=== PATIENT | male | born 1960 | race Caucasian/White ===

== ENCOUNTER 2016-12-13 20:34 | Inpatient (IN) | payer MEDICARE ==
--- NOTE | 2016-12-13 20:52 | ER Document Report ---
ED Extremity Problem, Lower - General Chief Complaint: Leg Pain Stated Complaint: LEG PAIN Time seen by provider: 20:45 Notes: Patient is a 56-year-old male that comes emergency department for chief complaint of pain to his left lower leg, patient states that 2 weeks ago he fell and caused an abrasion injury over the lower part of his leg, he states that he had been walking on it became began to itch, he states that it has become progressively red since then, last night he began having chills and today he had a fever of 101.4. Patient denies diabetes. Past medical history cerebral palsy, walks with a cane, has frequent falls. Tetanus is not UTD. - Related Data Allergies/Adverse Reactions: No Known Allergies Allergy (Unverified 12/13/16 20:44) Past Medical History - General Information source: Patient - Social History Smoking Status: Never Smoker Frequency of alcohol use: None Drug Abuse: None Lives with: Family Family History: Reviewed & Not Pertinent - Medical History Medical History: Negative Surgical Hx: Negative - Immunizations Immunizations up to date: No Hx Diphtheria, Pertussis, Tetanus Vaccination: Yes Review of Systems - Review of Systems Constitutional: See HPI EENT: No symptoms reported Cardiovascular: No symptoms reported Respiratory: No symptoms reported Gastrointestinal: No symptoms reported Genitourinary: No symptoms reported Male Genitourinary: No symptoms reported Musculoskeletal: See HPI Skin: See HPI Hematologic/Lymphatic: No symptoms reported Neurological/Psychological: No symptoms reported Physical Exam - Vital signs Vitals: Temp Pulse BP Pulse Ox 98.0 F 101 H 131/92 H 97 12/13/16 20:42 12/13/16 20:42 12/13/16 20:42 12/13/16 20:42 Interpretation: Normal - General General appearance: Appears well, Alert In distress: None - Patient lying comfortably on the bed and does not appear to be in any distress, he is slightly flushed appearance - HEENT Head: Normocephalic, Atraumatic Eyes: Normal Conjunctiva: Normal Extraocular movements intact: Yes Eyelashes: Normal Pupils: PERRL Mouth/Lips: Normal Mucous membranes: Normal Pharynx: Normal Neck: Normal - Respiratory Respiratory status: No respiratory distress Chest status: Nontender Breath sounds: Normal. No: Decreased air movement, Wheezing Chest palpation: Normal - Cardiovascular Rhythm: Regular. No: Tachycardia - Not tachycardic on my initial evaluation Heart sounds: Normal auscultation, S1 appreciated, S2 appreciated Murmur: No - Abdominal Inspection: Normal Distension: No distension Bowel sounds: Normal Tenderness: Nontender. No: Tender, Guarding Organomegaly: No organomegaly - Back Back: Normal, Nontender - Extremities General upper extremity: Normal inspection, Nontender, Normal ROM, Normal strength General lower extremity: Other - Erythema and warmth with tenderness extending from just below the knee all the way down to the end of the foot, there is a scab over the mid tibial area, there is small scabs over the posterior aspect of the mid tibial area as well. Normal dorsalis pedis, normal sensation, normal capillary refill. No induration or fluctuant areas noted - Neurological Neuro grossly intact: Yes Cognition: Normal Orientation: AAOx4 Felicia Coma Scale Eye Opening: Spontaneous Blanchard Coma Scale Verbal: Oriented Blanchard Coma Scale Motor: Obeys Commands Felicia Coma Scale Total: 15 Speech: Normal Motor strength normal: LUE, RUE, LLE, RLE Sensory: Normal - Psychological Associated symptoms: Normal affect, Normal mood - Skin Skin Temperature: Warm Skin Moisture: Dry Skin Color: Flushed - Slightly flushed. Patient has lots of dry skin over his arms and legs Course - Re-evaluation Re-evalutation: Patient with reported fever, there is cellulitis extending from the foot of the left lower extremity all the way to just below the knee, there is an obvious old wound with scab, there is no induration, fluctuation, no loss of sensation or abnormal capillary refill. X-rays negative for any acute injuries, likely old injuries from patient's frequent falls. Leukocytosis 16.7 with elevation of neutrophils. Patient not tachycardic on my initial examination, borderline tachycardic on initial vital signs, not hypotensive, he is not toxic appearing. Patient unable to bear weight on the leg without great difficulty, because of this, significant cellulitis, leukocytosis, and fevers discussed patient with hospitalist for potential admission. Tetanus updating, giving vancomycin. Dr. Cueva to admit to telemetry. Patient's vital signs rechecked patient is more tachycardic but is still not hypotensive. Patient is still not on a monitored bed but is being moved one now. - Vital Signs Vital signs: Temp Pulse Resp BP Pulse Ox 97.5 F 110 H 18 134/83 H 95 01/17/17 23:18 12/13/16 23:18 12/13/16 23:18 12/13/16 23:18 12/13/16 23:18 - Laboratory Result Diagrams: 12/13/16 20:55 12/13/16 20:55 Laboratory results interpreted by me: 12/13/16 12/13/16 20:55 20:55 WBC 16.2 H Plt Count 128 L Seg Neutrophils % 86.6 H Lymphocytes % 6.4 L Absolute Neutrophils 14.1 H BUN 28 H Total Bilirubin 1.9 H Discharge - Discharge Clinical Impression: Lower extremity cellulitis Qualifiers: Laterality: left Qualified Code(s): L03.116 - Cellulitis of left lower limb Condition: Stable Disposition: ADMITTED INPATIENT Admitting Provider: Hospitalist - Dr. Cueva Unit Admitted: Telemetry
[2016-12-13 21:21] LABS: ABSOLUTE MONOCYTES (AUTO) 1.1 10^3/uL (0.1-1.4); ABSOLUTE NEUT (AUTO) 14.1 10^3/uL (1.7-8.2); BASOPHILS % (AUTO) 0.2 % (0-2); HEMATOCRIT 46.8 % (37.9-51.0); HGB HCT DIFFERENCE 1.2; LYMPHOCYTES % (AUTO) 6.4 % (13-45); MEAN CORPUSCULAR HEMOGLOBIN 29.9 pg (27.0-33.4); MEAN CORPUSCULAR HGB CONC 34.2 g/dL (32.0-36.0); MEAN CORPUSCULAR VOLUME 88 fl (80-97); MONOCYTES % (AUTO) 6.8 % (3-13); RED BLOOD COUNT 5.35 10^6/uL (4.35-5.55); RED CELL DISTRIBUTION WIDTH 12.5 % (11.5-14.0); SEGMENTED NEUTROPHILS % (AUTO) 86.6 % (42-78); WHITE BLOOD COUNT 16.2 10^3/uL (4.0-10.5)
[2016-12-13 21:33] LABS: ALANINE AMINOTRANSFERASE 33 U/L (21-72); ALBUMIN 3.9 g/dL (3.5-5.0); ALKALINE PHOSPHATASE 91 U/L (38-126); ANION GAP 14 (5-19); ASPARTATE AMINO TRANSFERASE 28 U/L (17-59); BILIRUBIN,TOTAL 1.9 mg/dL (0.2-1.3); BLOOD UREA NITROGEN 28 mg/dL (7-20); CALCIUM 8.9 mg/dL (8.4-10.2); CARBON DIOXIDE 23 mmol/L (22-30); CHLORIDE 100 mmol/L (98-107); CREATININE RESULT 0.96 mg/dL (0.52-1.25); GLUCOSE 105 mg/dL (75-110); TOTAL PROTEIN 6.9 g/dL (6.3-8.2)
[2016-12-13] MEDS ORDERED: VANCOMYCIN HCL INJ 1000 MG VIAL IV ONE (23:01)
[2016-12-13] MEDS ORDERED: DIPH/PERTUSS(ACELL)/TETANUS VAC/PF 0.5 ML SYR (>=10YO) IM ONE (23:42)
[2016-12-13] MEDS ORDERED: NORMAL SALINE 1000 ML 1,000 ML IV ONE (23:44)
[2016-12-13] MEDS ORDERED: ACETAMINOPHEN 325 MG TABLET PO PRN (23:45)
[2016-12-13] MEDS ORDERED: MAG HYDROX/AL HYDROX/SIMETH SUSP 30 ML UDCUP PO PRN (23:45)
[2016-12-13] MEDS ORDERED: MAGNESIUM HYDROXIDE SUSP 30 ML UDCUP PO PRN (23:45)
[2016-12-13] MEDS ORDERED: ONDANSETRON HCL INJ/PF 4 MG/2 ML SDV IV PRN (23:45)
[2016-12-14] MEDS: NORMAL SALINE 1000 ML 1,000 ML IV SCH ×2 (04:43→09:24)
[2016-12-14] MEDS: CLINDAMYCIN 900 MG/D5W RTU 50 ML IV SCH ×3 (06:04→21:50)
[2016-12-14] MEDS: HEPARIN SOD (PORCINE) 5,000 UNIT/ML 1 ML SYRINGE SUBCUT SCH ×3 (06:04→21:50)
--- NOTE | 2016-12-14 06:14 | PDOC H&P ---
History of Present Illness Admission Date/PCP: 12/13/16 23:45 MARTÍNEZ CRAFT MD Patient complains of: Fever, Left leg pain and swelling History of Present Illness: SUSANNAH SLOAN is a 56 year old male with a past medical history of cerebral palsy who had been in his usual state of health until approximately 48 hours ago sustained a slip and fall resulting in an abrasion to his left john and subsequently developed fever, markedly erythema pain and swelling extending from the mid foot to the knee. In the emergency room he is received a tetanus booster and vancomycin referred to the hospitalist for admission. 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 Social History Information Source: Patient Lives with: Family Smoking Status: Never Smoker Frequency of Alcohol Use: None Hx Recreational Drug Use: No Drugs: None - Advance Directive Resuscitation Status: Full Code Family History Family History: Reviewed & Not Pertinent Parental Family History Reviewed: Yes Children Family History Reviewed: Yes Sibling(s) Family History Reviewed.: Yes Medication/Allergy Home Medications: Unobtainable [Unobtainable] 12/14/16 Allergies/Adverse Reactions: No Known Allergies Allergy (Unverified 12/13/16 20:44) Review of Systems Constitutional: ABSENT: chills, fever(s), headache(s), weight gain, weight loss Eyes: ABSENT: visual disturbances Ears: ABSENT: hearing changes Cardiovascular: ABSENT: chest pain, dyspnea on exertion, edema, orthropnea, palpitations Respiratory: ABSENT: cough, hemoptysis Gastrointestinal: ABSENT: abdominal pain, constipation, diarrhea, hematemesis, hematochezia, nausea, vomiting Genitourinary: ABSENT: dysuria, hematuria Musculoskeletal: ABSENT: joint swelling Integumentary: ABSENT: rash, wounds Neurological: ABSENT: abnormal gait, abnormal speech, confusion, dizziness, focal weakness, syncope Psychiatric: ABSENT: anxiety, depression, homidical ideation, suicidal ideation Endocrine: ABSENT: cold intolerance, heat intolerance, polydipsia, polyuria Hematologic/Lymphatic: ABSENT: easy bleeding, easy bruising Physical Exam Vital Signs: Temp Pulse Resp BP Pulse Ox 100.5 F H 103 H 27 H 136/87 H 97 12/14/16 02:39 12/14/16 04:24 12/14/16 03:01 12/14/16 03:01 12/14/16 03:01 General appearance: PRESENT: mild distress, thin, well-developed, well-nourished Head exam: PRESENT: atraumatic, normocephalic, other - diffuse scalp and facial seborrheic dermatitis Eye exam: PRESENT: conjunctiva pink, EOMI, PERRLA. ABSENT: scleral icterus Ear exam: PRESENT: normal external ear exam Respiratory exam: PRESENT: clear to auscultation stacie. ABSENT: rales, rhonchi, wheezes Cardiovascular exam: PRESENT: RRR. ABSENT: diastolic murmur, rubs, systolic murmur Pulses: PRESENT: normal dorsalis pedis pul Vascular exam: PRESENT: normal capillary refill GI/Abdominal exam: PRESENT: normal bowel sounds, soft. ABSENT: distended, guarding, mass, organolmegaly, rebound, tenderness Rectal exam: PRESENT: deferred Extremities exam: PRESENT: tenderness, +1 edema Musculoskeletal exam: PRESENT: other - Bilateral lower extremity congenital abnormality with muscular atrophy. Left leg erythema swelling in pain from the midfoot to the knee Neurological exam: PRESENT: alert, awake, oriented to person, oriented to place , oriented to time, oriented to situation, CN II-XII grossly intact. ABSENT: motor sensory deficit Psychiatric exam: PRESENT: appropriate affect, normal mood. ABSENT: homicidal ideation, suicidal ideation Skin exam: PRESENT: dry, erythema, intact - Left leg erythema swelling and pain from the midfoot to the knee, warm. ABSENT: cyanosis, rash Results Impressions: Tibia/Fibula X-Ray 12/13/16 20:47 IMPRESSION: No evidence for acute fracture dislocation involving the tibia or fibula. Other findings as noted above Assessment & Plan - Diagnosis (1) Lower extremity cellulitis Qualifiers: Laterality: left Qualified Code(s): L03.116 - Cellulitis of left lower limb Is this a current diagnosis for this admission?: YesPlan: Complicated by chronic skin changes he is placed on vancomycin, clindamycin and vitamin C, follow blood culture and CBC (2) Acute seborrheic dermatitis Is this a current diagnosis for this admission?: YesPlan: Ketoconazole shampoo ordered - Time Time Spent: 30 to 50 Minutes
[2016-12-14 06:17] LABS: ABSOLUTE LYMPHOCYTES (AUTO) 0.9 10^3/uL (0.5-4.7); ABSOLUTE NEUT (AUTO) 11.8 10^3/uL (1.7-8.2); BASOPHILS % (AUTO) 0.1 % (0-2); EOSINOPHILS % (AUTO) 0.1 % (0-6); HEMATOCRIT 40.8 % (37.9-51.0); HEMOGLOBIN 14.1 g/dL (13.5-17.0); HGB HCT DIFFERENCE 1.5; LYMPHOCYTES % (AUTO) 6.4 % (13-45); MEAN CORPUSCULAR HGB CONC 34.6 g/dL (32.0-36.0); MEAN CORPUSCULAR VOLUME 87 fl (80-97); RED BLOOD COUNT 4.71 10^6/uL (4.35-5.55); RED CELL DISTRIBUTION WIDTH 12.8 % (11.5-14.0); SEGMENTED NEUTROPHILS % (AUTO) 86.4 % (42-78); WHITE BLOOD COUNT 13.7 10^3/uL (4.0-10.5)
[2016-12-14 06:35] LABS: ANION GAP 11 (5-19); BLOOD UREA NITROGEN 26 mg/dL (7-20); CALCIUM 8.1 mg/dL (8.4-10.2); CARBON DIOXIDE 22 mmol/L (22-30); CHLORIDE 104 mmol/L (98-107); CREATININE RESULT 0.78 mg/dL (0.52-1.25); GLUCOSE 114 mg/dL (75-110); POTASSIUM 3.6 mmol/L (3.6-5.0); SODIUM 137.4 mmol/L (137-145)
[2016-12-14] MEDS: DOCUSATE SODIUM 100 MG CAPSULE PO SCH ×2 (09:24→18:37)
[2016-12-14] MEDS: ASCORBIC ACID 500 MG TABLET PO SCH ×2 (09:24→18:38)
[2016-12-14] MEDS: FAMOTIDINE 20 MG TABLET PO SCH ×2 (09:25→21:50)
[2016-12-14] MEDS ORDERED: NORMAL SALINE 1000 ML 1,000 ML IV PRN (10:36)
[2016-12-14] MEDS: KETOCONAZOLE 2% SHAMPOO 120 ML BOTTLE TP SCH (14:06)
--- NOTE | 2016-12-14 15:25 | PDOC PROGRESS REPORT ---
Subjective Progress Note for:: 12/14/16 Subjective:: Patient is sleeping comfortably; in no distress states that redness of the lower extremity has decreased some Patient has no respiratory distress no fever no chills Physical Exam Vital Signs: Temp Pulse Resp BP Pulse Ox 100.1 F 105 H 18 130/79 H 98 12/14/16 11:22 12/14/16 11:22 12/14/16 11:22 12/14/16 11:22 12/14/16 11:22 Intake & Output 12/13/16 12/14/16 12/15/16 00:59 00:59 00:59 Intake Total 520 Output Total 520 Balance 0 Weight 85.2 kg General appearance: PRESENT: other - Resting comfortably Head exam: PRESENT: atraumatic - Resting comfortably, normocephalic Eye exam: PRESENT: conjunctiva pink, EOMI, PERRLA. ABSENT: scleral icterus Neck exam: ABSENT: carotid bruit, JVD, lymphadenopathy, thyromegaly Respiratory exam: PRESENT: clear to auscultation stacie. ABSENT: rales, rhonchi, wheezes Cardiovascular exam: PRESENT: RRR. ABSENT: diastolic murmur, rubs, systolic murmur Vascular exam: PRESENT: normal capillary refill GI/Abdominal exam: PRESENT: normal bowel sounds, soft. ABSENT: distended, guarding, mass, organolmegaly, rebound, tenderness Extremities exam: PRESENT: other - Left lower extremity Erythema from the foot to mid thigh Skin warm to touch Neurological exam: PRESENT: alert, CN II-XII grossly intact Results Laboratory Results: 12/14/16 05:02 12/14/16 05:02 12/14/16 12/14/16 05:02 05:02 WBC 13.7 H RBC 4.71 Hgb 14.1 Hct 40.8 MCV 87 MCH 30.0 MCHC 34.6 RDW 12.8 Plt Count 110 L Seg Neutrophils % 86.4 H Lymphocytes % 6.4 L Monocytes % 7.0 Eosinophils % 0.1 Basophils % 0.1 Absolute Neutrophils 11.8 H Absolute Lymphocytes 0.9 Absolute Monocytes 1.0 Absolute Eosinophils 0.0 Absolute Basophils 0.0 Sodium 137.4 Potassium 3.6 Chloride 104 Carbon Dioxide 22 Anion Gap 11 BUN 26 H Creatinine 0.78 Est GFR ( Amer) > 60 Est GFR (Non-Af Amer) > 60 Glucose 114 H Calcium 8.1 L Impressions: Tibia/Fibula X-Ray 12/13/16 20:47 IMPRESSION: No evidence for acute fracture dislocation involving the tibia or fibula. Other findings as noted above Assessment & Plan - Diagnosis (1) Cerebral palsy Is this a current diagnosis for this admission?: Yes (2) Lower extremity cellulitis Qualifiers: Laterality: left Qualified Code(s): L03.116 - Cellulitis of left lower limb Is this a current diagnosis for this admission?: YesPlan: Continue present management Patient currently on clindamycin 900 mg IV piggyback every 8 hours (3) DVT prophylaxis Is this a current diagnosis for this admission?: YesPlan: Continue heparin (4) Full code status Is this a current diagnosis for this admission?: Yes - Time Time Spent with patient: 25-34 minutes
[2016-12-14] MEDS: CALCIUM CARBONATE 500 MG TAB.CHEW PO SCH (18:37)
[2016-12-15 05:54] LABS: ABSOLUTE EOSINOPHILS # (AUTO) 0.1 10^3/uL (0.0-0.6); ABSOLUTE LYMPHOCYTES (AUTO) 0.9 10^3/uL (0.5-4.7); ABSOLUTE NEUT (AUTO) 7.4 10^3/uL (1.7-8.2); BASOPHILS % (AUTO) 0.1 % (0-2); EOSINOPHILS % (AUTO) 0.6 % (0-6); HEMOGLOBIN 12.9 g/dL (13.5-17.0); HGB HCT DIFFERENCE 0.7; LYMPHOCYTES % (AUTO) 9.8 % (13-45); MEAN CORPUSCULAR HEMOGLOBIN 29.9 pg (27.0-33.4); MEAN CORPUSCULAR VOLUME 88 fl (80-97); MONOCYTES % (AUTO) 10.3 % (3-13); RED BLOOD COUNT 4.33 10^6/uL (4.35-5.55); RED CELL DISTRIBUTION WIDTH 12.8 % (11.5-14.0); SEGMENTED NEUTROPHILS % (AUTO) 79.2 % (42-78); WHITE BLOOD COUNT 9.3 10^3/uL (4.0-10.5)
[2016-12-15] MEDS: CLINDAMYCIN 900 MG/D5W RTU 50 ML IV SCH ×3 (06:15→23:51)
[2016-12-15 06:16] LABS: ANION GAP 8 (5-19); BLOOD UREA NITROGEN 15 mg/dL (7-20); CARBON DIOXIDE 22 mmol/L (22-30); CHLORIDE 109 mmol/L (98-107); CREATININE RESULT 0.66 mg/dL (0.52-1.25); GLUCOSE 90 mg/dL (75-110); POTASSIUM 3.8 mmol/L (3.6-5.0)
[2016-12-15] MEDS: HEPARIN SOD (PORCINE) 5,000 UNIT/ML 1 ML SYRINGE SUBCUT SCH ×3 (06:22→22:37)
[2016-12-15] MEDS: ASCORBIC ACID 500 MG TABLET PO SCH ×2 (09:39→17:40)
[2016-12-15] MEDS: DOCUSATE SODIUM 100 MG CAPSULE PO SCH ×2 (09:40→17:41)
[2016-12-15] MEDS: CALCIUM CARBONATE 500 MG TAB.CHEW PO SCH ×3 (09:40→17:40)
[2016-12-15] MEDS: FAMOTIDINE 20 MG TABLET PO SCH ×2 (09:41→23:46)
--- NOTE | 2016-12-15 11:20 | PDOC PROGRESS REPORT ---
Subjective Progress Note for:: 12/15/16 Subjective:: Patient is doing much better The redness is decreasing He has no fever no chills no other complaints Leukocytosis has resolved Physical Exam Vital Signs: Temp Pulse Resp BP Pulse Ox 97.6 F 79 20 121/82 97 12/15/16 08:07 12/15/16 08:07 12/15/16 08:07 12/15/16 08:07 12/15/16 08:07 Intake & Output 12/14/16 12/15/16 12/16/16 00:59 00:59 00:59 Intake Total 2394 1779 Output Total 1040 250 Balance 1354 1529 Weight 85.2 kg 88.9 kg General appearance: PRESENT: no acute distress Head exam: PRESENT: atraumatic, normocephalic Eye exam: PRESENT: conjunctiva pink, EOMI, PERRLA. ABSENT: scleral icterus Neck exam: ABSENT: carotid bruit, JVD, lymphadenopathy, thyromegaly Respiratory exam: PRESENT: clear to auscultation stacie. ABSENT: rales, rhonchi, wheezes Cardiovascular exam: PRESENT: RRR. ABSENT: diastolic murmur, rubs, systolic murmur Pulses: PRESENT: normal dorsalis pedis pul Extremities exam: PRESENT: other - Left lower extremity still has some redness mild extending from the foot to the inferior aspect of the patella But the skin is not as red and is warm to touch Decreased to 1-2+ edema of the foot The skin appears extremely dry and scaly Results Laboratory Results: 12/15/16 05:34 12/15/16 05:34 12/15/16 12/15/16 12/15/16 05:34 05:34 05:34 WBC 9.3 RBC 4.33 L Hgb 12.9 L Hct 38.0 MCV 88 MCH 29.9 MCHC 34.0 RDW 12.8 Plt Count 100 L Seg Neutrophils % 79.2 H Lymphocytes % 9.8 L Monocytes % 10.3 Eosinophils % 0.6 Basophils % 0.1 Absolute Neutrophils 7.4 Absolute Lymphocytes 0.9 Absolute Monocytes 1.0 Absolute Eosinophils 0.1 Absolute Basophils 0.0 Sodium 139.0 Potassium 3.8 Chloride 109 H Carbon Dioxide 22 Anion Gap 8 BUN 15 Creatinine 0.66 Est GFR ( Amer) > 60 Est GFR (Non-Af Amer) > 60 Glucose 90 Calcium 8.0 L Ionized Calcium Dari 1.10 L Impressions: Tibia/Fibula X-Ray 12/13/16 20:47 IMPRESSION: No evidence for acute fracture dislocation involving the tibia or fibula. Other findings as noted above Assessment & Plan - Diagnosis (1) Cerebral palsy Is this a current diagnosis for this admission?: Yes (2) Lower extremity cellulitis Qualifiers: Laterality: left Qualified Code(s): L03.116 - Cellulitis of left lower limb Is this a current diagnosis for this admission?: YesPlan: Improving Continue clindamycin IV (3) DVT prophylaxis Is this a current diagnosis for this admission?: Yes (4) Full code status Is this a current diagnosis for this admission?: Yes (5) Seborrheic dermatitis Is this a current diagnosis for this admission?: YesPlan: Continue the use of ketoconazole shampoo daily - Time Time Spent with patient: 25-34 minutes
[2016-12-15] MEDS: KETOCONAZOLE 2% SHAMPOO 120 ML BOTTLE TP SCH (17:37)
[2016-12-16] MEDS: CLINDAMYCIN 900 MG/D5W RTU 50 ML IV SCH (06:21)
[2016-12-16] MEDS: HEPARIN SOD (PORCINE) 5,000 UNIT/ML 1 ML SYRINGE SUBCUT SCH ×2 (06:27→14:55)
[2016-12-16 06:58] LABS: ABSOLUTE EOSINOPHILS # (AUTO) 0.2 10^3/uL (0.0-0.6); ABSOLUTE LYMPHOCYTES (AUTO) 1.2 10^3/uL (0.5-4.7); ABSOLUTE MONOCYTES (AUTO) 0.9 10^3/uL (0.1-1.4); ABSOLUTE NEUT (AUTO) 6.1 10^3/uL (1.7-8.2); BASOPHILS % (AUTO) 0.4 % (0-2); EOSINOPHILS % (AUTO) 1.8 % (0-6); HEMATOCRIT 39.5 % (37.9-51.0); HEMOGLOBIN 13.4 g/dL (13.5-17.0); HGB HCT DIFFERENCE 0.7; LYMPHOCYTES % (AUTO) 14.1 % (13-45); MEAN CORPUSCULAR HEMOGLOBIN 29.9 pg (27.0-33.4); MEAN CORPUSCULAR VOLUME 88 fl (80-97); MONOCYTES % (AUTO) 10.9 % (3-13); RED BLOOD COUNT 4.49 10^6/uL (4.35-5.55); RED CELL DISTRIBUTION WIDTH 12.9 % (11.5-14.0); SEGMENTED NEUTROPHILS % (AUTO) 72.8 % (42-78); WHITE BLOOD COUNT 8.3 10^3/uL (4.0-10.5)
[2016-12-16 07:16] LABS: ANION GAP 10 (5-19); BLOOD UREA NITROGEN 14 mg/dL (7-20); CALCIUM 8.5 mg/dL (8.4-10.2); CARBON DIOXIDE 22 mmol/L (22-30); CHLORIDE 109 mmol/L (98-107); CREATININE RESULT 0.64 mg/dL (0.52-1.25); GLUCOSE 91 mg/dL (75-110); POTASSIUM 3.6 mmol/L (3.6-5.0); SODIUM 141.4 mmol/L (137-145)
[2016-12-16] MEDS ORDERED: DILTIAZEM HCL INJ 25 MG/5 ML VIAL IV ONE ×2 (09:22→12:25)
[2016-12-16] MEDS ORDERED: DILTIAZEM HCL INJ 25 MG/5 ML VIAL ONE ×2 (09:28→12:26)
[2016-12-16] MEDS ORDERED: VANCOMYCIN HCL 0 MG in DEXTROSE 5%-WATER 250 ML IV NR (10:00)
[2016-12-16 10:52] LABS: VITAMIN D 25-HYDROXY 17.2 ng/mL (30.0-100.0)
--- NOTE | 2016-12-16 11:10 | Physician Advisory Note ---
Physician Advisor ProgressNote .: Pursuant to the plan for [facility], I have reviewed the medical record for this patient. Physician Advisor Statement: Possible documentation opportunities if attending agrees: 1. "Principal Dx": please keep Principal Dx that required adm as Dx #1 in each note - or document in each note next to appropriate dx "This is Principal Dx". Thanks for your help with documentation accuracy/specificity improvement! CK Coders: pt does have (+)SIRS criteria, with cellulitis, but unless attending documents that they felt pt actually had "(+)sepsis due to cellulitis, POA, despite neg BC's", I would not query for that dx in this case.
[2016-12-16] MEDS: KETOCONAZOLE 2% SHAMPOO 120 ML BOTTLE TP SCH (11:30)
[2016-12-16] MEDS: CALCIUM CARBONATE 500 MG TAB.CHEW PO SCH ×2 (11:31→17:36)
[2016-12-16] MEDS: ASCORBIC ACID 500 MG TABLET PO SCH ×2 (11:32→17:35)
[2016-12-16] MEDS: FAMOTIDINE 20 MG TABLET PO SCH ×2 (11:33→22:24)
[2016-12-16] MEDS: ENOXAPARIN SODIUM INJ 100 MG/1 ML DISP.SYRIN SUBCUT SCH ×2 (11:33→22:24)
[2016-12-16] MEDS: DOCUSATE SODIUM 100 MG CAPSULE PO SCH ×2 (11:33→17:35)
[2016-12-16] MEDS: DILTIAZEM HCL/D5W 125 ML IV PRN ×2 (11:35→17:40)
[2016-12-16] MEDS ORDERED: DIGOXIN INJ 0.5 MG/2 ML AMPULE IV ONE (12:37)
[2016-12-16 14:18] LABS: VITAMIN D 1,25 DIHYDROXY 36.6 pg/mL (19.9-79.3)
[2016-12-16] MEDS: VANCOMYCIN HCL 1,250 MG in DEXTROSE 5%-WATER 250 ML IV SCH ×2 (14:54→22:24)
[2016-12-16] MEDS: PIPERACILLIN SODIUM/TAZOBACTAM 3.375 GM in NORMAL SALINE 100 ML IV SCH ×3 (14:55→23:51)
[2016-12-16] MEDS ORDERED: POTASSIUM CHLORIDE 10 MEQ TABLET.SA PO ONE (16:36)
--- NOTE | 2016-12-16 16:36 | PDOC PROGRESS REPORT ---
Subjective Progress Note for:: 12/16/16 Subjective:: Cardiac arrhythmia this am : Paroxysmal atrial fibrillation with rapid ventricular response no chest pain or SOB Patient was treated with cardizem IV , digoxin and anticoagulated He was transfered to [facility] Lung scan was negative for PE The cellulitis is not improving with minimal decrease of redness and swelling after 72 H of IV clindamycin Physical Exam Vital Signs: Temp Pulse Resp BP Pulse Ox 97.2 F 125 H 19 112/91 H 95 12/16/16 12:15 12/16/16 14:00 12/16/16 12:15 12/16/16 15:18 12/16/16 12:15 Intake & Output 12/15/16 12/16/16 12/17/16 00:59 00:59 00:59 Intake Total 2394 4259 220 Output Total 1040 1245 120 Balance 1354 3014 100 Weight 85.2 kg 88.9 kg 89.2 kg General appearance: PRESENT: no acute distress Head exam: PRESENT: atraumatic, normocephalic Eye exam: PRESENT: conjunctiva pink, EOMI, PERRLA. ABSENT: scleral icterus Neck exam: ABSENT: carotid bruit, JVD, lymphadenopathy, thyromegaly Respiratory exam: PRESENT: clear to auscultation stacie. ABSENT: rales, rhonchi, wheezes Cardiovascular exam: PRESENT: irregular rhythm, tachycardia. ABSENT: diastolic murmur, systolic murmur GI/Abdominal exam: PRESENT: normal bowel sounds, soft. ABSENT: distended, guarding, mass, organolmegaly, rebound, tenderness Extremities exam: PRESENT: +1 edema - left leg still erythematous, swollen and tender on palpation from foot to knee, other Neurological exam: PRESENT: alert, awake, oriented to person, oriented to place , oriented to time, oriented to situation, CN II-XII grossly intact. ABSENT: motor sensory deficit Results Laboratory Results: 12/16/16 05:58 12/16/16 05:58 12/16/16 12/16/16 05:58 05:58 WBC 8.3 RBC 4.49 Hgb 13.4 L Hct 39.5 MCV 88 MCH 29.9 MCHC 34.0 RDW 12.9 Plt Count 123 L Seg Neutrophils % 72.8 Lymphocytes % 14.1 Monocytes % 10.9 Eosinophils % 1.8 Basophils % 0.4 Absolute Neutrophils 6.1 Absolute Lymphocytes 1.2 Absolute Monocytes 0.9 Absolute Eosinophils 0.2 Absolute Basophils 0.0 Sodium 141.4 Potassium 3.6 Chloride 109 H Carbon Dioxide 22 Anion Gap 10 BUN 14 Creatinine 0.64 Est GFR ( Amer) > 60 Est GFR (Non-Af Amer) > 60 Glucose 91 Calcium 8.5 Impressions: Tibia/Fibula X-Ray 12/13/16 20:47 IMPRESSION: No evidence for acute fracture dislocation involving the tibia or fibula. Other findings as noted above Lung Scan-VQ NM 12/16/16 12:25 IMPRESSION: NORMAL VENTILATION-PERFUSION LUNG SCAN. NEGATIVE FOR PULMONARY EMBOLI. Assessment & Plan - Diagnosis (1) Cerebral palsy Is this a current diagnosis for this admission?: Yes (2) Lower extremity cellulitis Qualifiers: Laterality: left Qualified Code(s): L03.116 - Cellulitis of left lower limb Is this a current diagnosis for this admission?: YesPlan: not improving expand coverage with vanco/zosyn (3) DVT prophylaxis Is this a current diagnosis for this admission?: Yes (4) Full code status Is this a current diagnosis for this admission?: Yes (5) Seborrheic dermatitis Is this a current diagnosis for this admission?: Yes (6) PAF (paroxysmal atrial fibrillation) Is this a current diagnosis for this admission?: YesPlan: with rapid ventricular rate continue cardizem IV ; digoxin no evidence of PE serial troponins continue anticoagulation ; Echocardiogram pending - Time Time Spent with patient: 35 or more minutes
[2016-12-16 19:05] LABS: APPEARANCE,URINE CLEAR; BILIRUBIN,URINE NEGATIVE (NEGATIVE); GLUCOSE, URINE NEGATIVE (NEGATIVE); KETONES,URINE NEGATIVE (NEGATIVE); LEUKOCYTE ESTERASE,URINE NEGATIVE (NEGATIVE); NITRITE,URINE NEGATIVE (NEGATIVE); PROTEIN,URINE NEGATIVE (NEGATIVE); URINE SPECIFIC GRAVITY 1.018; UROBILINOGEN,URINE NEGATIVE mg/dL (<2.0)
--- NOTE | 2016-12-16 20:58 | EKG REPORT ---
SEVERITY:- ABNORMAL ECG - ATRIAL FIBRILLATION, V-RATE 69-147 NONSPECIFIC T ABNORMALITIES, INFERIOR LEADS : Confirmed by: Yang Fofana MD 16-Dec-2016 20:57:23
[2016-12-17] MEDS: DILTIAZEM HCL/D5W 125 ML IV PRN ×2 (03:16→21:25)
[2016-12-17] MEDS: PIPERACILLIN SODIUM/TAZOBACTAM 3.375 GM in NORMAL SALINE 100 ML IV SCH ×4 (05:18→23:44)
[2016-12-17] MEDS: VANCOMYCIN HCL 1,250 MG in DEXTROSE 5%-WATER 250 ML IV SCH ×3 (06:14→21:30)
[2016-12-17 08:39] LABS: ANION GAP 11 (5-19); BLOOD UREA NITROGEN 17 mg/dL (7-20); CALCIUM 8.3 mg/dL (8.4-10.2); CARBON DIOXIDE 23 mmol/L (22-30); CHLORIDE 106 mmol/L (98-107); CREATININE RESULT 0.68 mg/dL (0.52-1.25); GLUCOSE 99 mg/dL (75-110); POTASSIUM 3.6 mmol/L (3.6-5.0); SODIUM 139.7 mmol/L (137-145)
[2016-12-17] MEDS ORDERED: METOPROLOL TARTRATE 25 MG TABLET PO SCH (10:00)
[2016-12-17] MEDS: CHOLECALCIFEROL (D3) 1,000 UNIT TABLET PO SCH (11:35)
[2016-12-17] MEDS: FAMOTIDINE 20 MG TABLET PO SCH ×2 (11:36→21:26)
[2016-12-17] MEDS: DIGOXIN 0.25 MG TABLET PO SCH (11:39)
[2016-12-17] MEDS: DOCUSATE SODIUM 100 MG CAPSULE PO SCH ×2 (11:40→18:26)
[2016-12-17] MEDS: ASCORBIC ACID 500 MG TABLET PO SCH ×2 (11:41→18:26)
[2016-12-17] MEDS: CALCIUM CARBONATE 500 MG TAB.CHEW PO SCH ×2 (11:43→18:26)
[2016-12-17] MEDS: MINERAL OIL/PETROLATUM,WHITE CREAM 114 GM TP SCH (11:45)
[2016-12-17] MEDS: KETOCONAZOLE 2% SHAMPOO 120 ML BOTTLE TP SCH (11:45)
[2016-12-17] MEDS ORDERED: FUROSEMIDE INJ/PF 20 MG/2 ML SDV ONE (11:54)
[2016-12-17 12:21] LABS: ABSOLUTE EOSINOPHILS # (AUTO) 0.2 10^3/uL (0.0-0.6); ABSOLUTE LYMPHOCYTES (AUTO) 1.4 10^3/uL (0.5-4.7); ABSOLUTE MONOCYTES (AUTO) 0.9 10^3/uL (0.1-1.4); ABSOLUTE NEUT (AUTO) 6.5 10^3/uL (1.7-8.2); BASOPHILS % (AUTO) 0.5 % (0-2); EOSINOPHILS % (AUTO) 2.6 % (0-6); HEMATOCRIT 40.8 % (37.9-51.0); HEMOGLOBIN 13.8 g/dL (13.5-17.0); HGB HCT DIFFERENCE 0.6; LYMPHOCYTES % (AUTO) 15.8 % (13-45); MEAN CORPUSCULAR HEMOGLOBIN 29.9 pg (27.0-33.4); MEAN CORPUSCULAR HGB CONC 33.8 g/dL (32.0-36.0); MEAN CORPUSCULAR VOLUME 89 fl (80-97); MONOCYTES % (AUTO) 9.7 % (3-13); RED BLOOD COUNT 4.61 10^6/uL (4.35-5.55); RED CELL DISTRIBUTION WIDTH 12.8 % (11.5-14.0); SEGMENTED NEUTROPHILS % (AUTO) 71.4 % (42-78); WHITE BLOOD COUNT 9.1 10^3/uL (4.0-10.5)
[2016-12-17] MEDS: ENOXAPARIN SODIUM INJ 100 MG/1 ML DISP.SYRIN SUBCUT SCH ×2 (13:54→21:25)
[2016-12-17 14:39] LABS: CREATININE RESULT 0.74 mg/dL (0.52-1.25)
[2016-12-17] MEDS ORDERED: METOPROLOL TARTRATE 25 MG TABLET PO ONE (15:00)
--- NOTE | 2016-12-17 15:08 | XCELERA REPORT ---
[address] [address] Transthoracic Echocardiogram Report Name: SUSANNAH SLOAN Age: 56 yrs Gender: Male : 1960 Patient Status: Inpatient Patient Location: [id number]\304\[id number]\B Study Date: 12/16/2016 07:55 PM Height: 66 in Weight: 196 lb BSA: 2.0 m2 Procedure: A two-dimensional transthoracic echocardiogram with color flow and Doppler was performed. The study was technically difficult with many images being suboptimal in quality. Less than optimal endocrdial visualisation of anterior wall. Reason For Study: PAROXYSMAL ATRIAL FIBRILLATION History: PAROXYSMAL ATRIAL FIBRILLATION. Ordering Physician: MACKENZIE KING Interpretation Summary The left ventricle is normal in size. There is normal left ventricular wall thickness. LV EF is 65% Left ventricular systolic function is normal. The left ventricular wall motion is normal. There is no thrombus. Is off axis.Probaly normal. The left atrial size is normal. There is no evidence of mitral valve prolapse. There is no mitral valve stenosis. There is a mild amount of mitral regurgitation There is no aortic valve stenosis There is no LVOT obstruction. No aortic regurgitation is present. There is no tricuspid stenosis. There is a trace amount of tricuspid regurgitation Right ventricular systolic pressure is normal. RVSP is 26 mm of Hg , with RA mean of 5. There is no pericardial effusion. MMode/2D Measurements \T\ Calculations RVDd: 3.1 cm LVIDd: 4.1 cm FS: 22.2 % LA dimension: 3.0 cm IVSd: 1.0 cm LVIDs: 3.2 cm EDV(Teich): 73.9 ml LVPWd: 0.97 cm ESV(Teich): 40.5 ml EF(Teich): 45.2 % LVOT diam: 2.1 cm LA A4Cs: 17.5 cm2 LA length: 5.7 cm LVOT area: 3.6 cm2 Doppler Measurements \T\ Calculations MV E max fredy: MV P1/2t max fredy: Ao V2 max: LV V1 max P.3 cm/sec 130.8 cm/sec 167.6 cm/sec 6.6 mmHg MV P1/2t: 63.4 msec Ao max PG: LV V1 max: MVA(P1/2t): 3.5 cm2 11.4 mmHg 128.6 cm/sec MV dec slope: CHRISTINE(V,D): 2.7 cm2 604.4 cm/sec2 MV dec time: 0.20 sec PA V2 max: TR max fredy: 71.2 cm/sec 228.0 cm/sec PA max PG: TR max P.8 mmHg 2.0 mmHg Left Ventricle The left ventricle is normal in size. There is normal left ventricular wall thickness. LV EF is 65%. Left ventricular systolic function is normal. LV diastolic function could not be adequately assessed due to atrial fibrilation. The left ventricular wall motion is normal. There is no thrombus. There is no ventricular septal defect visualized. Right Ventricle Is off axis.Probaly normal. Atria The right atrium is normal. The left atrial size is normal. The interatrial septum is intact with no evidence for an atrial septal defect. Mitral Valve There is no evidence of mitral valve prolapse. There is no vegetation seen on the mitral valve. There is no mitral valve stenosis. There is a mild amount of mitral regurgitation. Aortic Valve The aortic valve is trileaflet. The aortic valve opens well. There is no aortic valvular vegetation. There is no aortic valve stenosis. There is no LVOT obstruction. No aortic regurgitation is present. Tricuspid Valve There is no tricuspid stenosis. There is a trace amount of tricuspid regurgitation. Right ventricular systolic pressure is normal. RVSP is 26 mm of Hg , with RA mean of 5. Pulmonic Valve There is no pulmonic valvular stenosis. There is no pulmonic valvular regurgitation. Great Vessels The aortic root is not well visualized. Effusions There is no pericardial effusion. : MACKENZIE KING > Trinh Rodrigues
[2016-12-17] MEDS: METOPROLOL TARTRATE 50 MG TABLET PO SCH (21:26)
[2016-12-18] MEDS ORDERED: POTASSIUM CHLORIDE 10 MEQ TABLET.SA PO ONE (02:32)
[2016-12-18] MEDS ORDERED: FUROSEMIDE INJ/PF 40 MG/4 ML SDV IV ONE (02:32)
[2016-12-18 05:24] LABS: ANION GAP 14 (5-19); BLOOD UREA NITROGEN 18 mg/dL (7-20); CALCIUM 8.8 mg/dL (8.4-10.2); CARBON DIOXIDE 25 mmol/L (22-30); CHLORIDE 103 mmol/L (98-107); GLUCOSE 93 mg/dL (75-110); MAGNESIUM 1.6 mg/dL (1.6-2.3); POTASSIUM 3.9 mmol/L (3.6-5.0); SODIUM 141.5 mmol/L (137-145)
[2016-12-18] MEDS: PIPERACILLIN SODIUM/TAZOBACTAM 3.375 GM in NORMAL SALINE 100 ML IV SCH (05:25)
[2016-12-18] MEDS: VANCOMYCIN HCL 1,250 MG in DEXTROSE 5%-WATER 250 ML IV SCH (06:24)
[2016-12-18] MEDS: DILTIAZEM HCL/D5W 125 ML IV PRN ×2 (06:29→22:02)
[2016-12-18] MEDS ORDERED: FUROSEMIDE INJ/PF 20 MG/2 ML SDV IV SCH (07:45)
[2016-12-18] MEDS ORDERED: DIPHENHYDRAMINE HCL 50 MG/ML VIAL IV PRN (08:57)
[2016-12-18] MEDS: LINEZOLID 300 ML IV SCH ×2 (09:49→21:07)
[2016-12-18] MEDS: MINERAL OIL/PETROLATUM,WHITE CREAM 114 GM TP SCH (09:51)
[2016-12-18] MEDS: KETOCONAZOLE 2% SHAMPOO 120 ML BOTTLE TP SCH (09:51)
[2016-12-18] MEDS ORDERED: DIPHENHYDRAMINE HCL 50 MG/ML VIAL ONE (09:54)
[2016-12-18] MEDS: DILTIAZEM HCL 120 MG CAP.SR.24H PO SCH ×2 (09:55→21:07)
[2016-12-18] MEDS: DOCUSATE SODIUM 100 MG CAPSULE PO SCH ×2 (09:56→17:46)
[2016-12-18] MEDS: DIGOXIN 0.25 MG TABLET PO SCH (09:56)
[2016-12-18] MEDS: CHOLECALCIFEROL (D3) 1,000 UNIT TABLET PO SCH (09:56)
[2016-12-18] MEDS: METOPROLOL TARTRATE 50 MG TABLET PO SCH ×2 (09:56→21:07)
[2016-12-18] MEDS: ENOXAPARIN SODIUM INJ 100 MG/1 ML DISP.SYRIN SUBCUT SCH (09:57)
[2016-12-18] MEDS: FAMOTIDINE 20 MG TABLET PO SCH ×2 (09:57→21:07)
[2016-12-18] MEDS ORDERED: ASPIRIN 81 MG TABLET, ENT COATED PO SCH (10:00)
[2016-12-18] MEDS: METHYLPREDNISOLONE INJ 40 MG/1 ML SDV IV SCH ×2 (10:06→17:45)
[2016-12-18] MEDS: CALCIUM CARBONATE 500 MG TAB.CHEW PO SCH ×2 (10:18→17:46)
[2016-12-18] MEDS: ASCORBIC ACID 500 MG TABLET PO SCH ×2 (10:18→17:46)
--- NOTE | 2016-12-18 12:01 | PDOC PROGRESS REPORT ---
Subjective Progress Note for:: 12/18/16 Subjective:: still in atrial fibrillation with better rate control developped SOB last night and improved with lasix CXR on 12/17 was suggestive of fluid overload This am erythroderma was seen on patient's back without pruritus , thought to be an allergic reaction from Vancomycin which was discontinued Patient has no chest pain fever or chills Physical Exam Vital Signs: Temp Pulse Resp BP Pulse Ox 97.9 F 115 H 24 H 120/84 95 12/18/16 07:15 12/18/16 11:00 12/18/16 07:15 12/18/16 11:00 12/18/16 07:15 Intake & Output 12/17/16 12/18/16 12/19/16 00:59 00:59 00:59 Intake Total 1182 3040 984 Output Total 120 1945 1651 Balance 1062 1095 -667 Weight 89.2 kg 90 kg 88.5 kg General appearance: PRESENT: no acute distress Head exam: PRESENT: atraumatic, normocephalic Eye exam: PRESENT: conjunctiva pink, EOMI, PERRLA. ABSENT: scleral icterus Respiratory exam: PRESENT: clear to auscultation stacie. ABSENT: rales, rhonchi, wheezes Cardiovascular exam: PRESENT: irregular rhythm. ABSENT: diastolic murmur, rubs , systolic murmur Pulses: PRESENT: normal dorsalis pedis pul GI/Abdominal exam: PRESENT: normal bowel sounds, soft. ABSENT: distended, guarding, mass, organolmegaly, rebound, tenderness Extremities exam: PRESENT: other - left lower extremity decreased erythema and swelling Skin exam: PRESENT: other - back : intense erythroderma skin red , warm to touch Results Laboratory Results: 12/17/16 12:08 12/18/16 04:08 12/17/16 12/17/16 12/18/16 12:08 14:00 04:08 WBC 9.1 RBC 4.61 Hgb 13.8 Hct 40.8 MCV 89 MCH 29.9 MCHC 33.8 RDW 12.8 Plt Count 154 Seg Neutrophils % 71.4 Lymphocytes % 15.8 Monocytes % 9.7 Eosinophils % 2.6 Basophils % 0.5 Absolute Neutrophils 6.5 Absolute Lymphocytes 1.4 Absolute Monocytes 0.9 Absolute Eosinophils 0.2 Absolute Basophils 0.0 Sodium 141.5 Potassium 3.9 Chloride 103 Carbon Dioxide 25 Anion Gap 14 BUN 18 Creatinine 0.74 0.70 Est GFR ( Amer) > 60 > 60 Est GFR (Non-Af Amer) > 60 > 60 Glucose 93 Calcium 8.8 Magnesium 1.6 12/16/16 12/16/16 12/17/16 17:00 22:40 04:24 Troponin I 0.019 0.014 0.015 NT-Pro-B Natriuret Pep 12/17/16 04:24 Troponin I NT-Pro-B Natriuret Pep 2380 H Impressions: Tibia/Fibula X-Ray 12/13/16 20:47 IMPRESSION: No evidence for acute fracture dislocation involving the tibia or fibula. Other findings as noted above Lung Scan-VQ NM 12/16/16 12:25 IMPRESSION: NORMAL VENTILATION-PERFUSION LUNG SCAN. NEGATIVE FOR PULMONARY EMBOLI. Chest X-Ray 12/17/16 08:03 IMPRESSION: CARDIAC ENLARGEMENT. VASCULAR CONGESTION. Assessment & Plan - Diagnosis (1) Cerebral palsy Is this a current diagnosis for this admission?: Yes (2) Lower extremity cellulitis Qualifiers: Laterality: left Qualified Code(s): L03.116 - Cellulitis of left lower limb Is this a current diagnosis for this admission?: YesPlan: improving somewhat d/c vanco and replace it with linezolid (3) DVT prophylaxis Is this a current diagnosis for this admission?: Yes (4) Full code status Is this a current diagnosis for this admission?: Yes (5) Seborrheic dermatitis Is this a current diagnosis for this admission?: Yes (6) PAF (paroxysmal atrial fibrillation) Is this a current diagnosis for this admission?: YesPlan: echo showed normal EF; no valvular abnormalities Vascular CHADS Score is Zero will d/c lovenox and prescribe ecotrin 81 mg daily continue digoxin , cardizem metoprolol Dr Ibarra will consult (7) Allergic drug rash Is this a current diagnosis for this admission?: YesPlan: secondary to Vancomycin d/c vanco; treat with solumedrol and benadryl - Time Time Spent with patient: will have patient evaluated in am by PT if stable enough Time Spent with patient: 35 or more minutes
[2016-12-18] MEDS: DIPHENHYDRAMINE HCL 50 MG/ML VIAL IV SCH ×3 (12:38→23:14)
--- NOTE | 2016-12-18 15:58 | CONSULTATION REPORT E ---
Consultation Report NAME: SUSANNAH SLOAN : 1960 AGE: 56Y DATE: 12/18/2016 304 A TO: PATRICIA BEAR M.D. FROM: YOSHI FUENTES M.D. Requesting Physician REASON FOR CONSULTATION: New-onset atrial fibrillation with rapid ventricular response. HISTORY: Patient is a 56-year-old male with known history of cerebral palsy with gait imbalance who walks with a walker, had an accidental fall and had an abrasion to the skin of the left lower extremity, subsequently developed infection and was admitted for cellulitis. The patient yesterday went into atrial fibrillation with rapid ventricular response and was transferred to the telemetry unit and was placed on IV Cardizem. Late last night, the patient developed shortness of breath which improved with Lasix with a chest x-ray showing fluid overload. This may be secondary to atrial fibrillation with rapid ventricular response, and plus the patient is getting IV fluids. The patient with the Lasix improved and at present denies any chest pain or discomfort. There is no shortness of breath. There is no PND or orthopnea. There are no palpitations. There are no TIA or CVA symptoms. As per the patient, his cellulitis is marginally improved with the current treatment. 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 Hence, the patient is on diphenhydramine and steroids. PAST MEDICAL HISTORY: Negative for hypertension. Negative for coronary artery disease, angina or CO. Negative for diabetes mellitus or thyroid disease. There is no history of chronic kidney disease. No symptoms of enlarged prostate. No history of collagen vascular disease. He denies any history of TIA or CVA. He has a history of cerebral palsy and has gait imbalance and walks with a walker, but now with the cellulitis the patient is not able to walk. There is no history of pulmonary embolism. There is no history of asthma or COPD. Although there is no past history of congestive heart failure, the patient yesterday might have gone into fluid overload versus secondary to atrial fibrillation with rapid ventricular response causing congestive heart failure which has resolved with Lasix IV. FAMILY HISTORY: Negative for hypertension, diabetes mellitus, or arrhythmias. 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 SOCIAL HISTORY: The patient does not smoke. There is no history of ETOH abuse. DISPOSITION: The patient is FULL CODE. His is his surrogate healthcare decision maker. MEDICATIONS: Include: Acetaminophen 650 mg p.o. q. 4 hours p.r.n. Ascorbic acid 1000 mg p.o. b.i.d. Aspirin 81 mg p.o. daily. Vitamin D 1000 units p.o. daily. He is on digoxin 0.25 mg p.o. daily. He is on Cardizem 120 mg p.o. q. 12 hours (long acting Cardizem). He received 1 dose of 15 mg IV. He is on diphenhydramine 25 mg IV q. 6 hours. He is on Colace 100 mg p.o. b.i.d. He is on Lovenox 40 mg subcutaneously daily. He is on Pepcid 20 mg p.o. q. 12 hours. He received Lasix 40 mg IV x1 yesterday. He is on Lasix 20 mg IV q. 12 hours. He is on diltiazem at 5 mg/hr transfusion. He is on linezolid (Zyvox) 600 mg IV q. 12 hours. He did receive normal saline 1000-mL boluses times 3 bags. He is on ketoconazole 1 application topically daily. He is on magnesium hydroxide 30 mL p.o. q. 4 hours p.r.n. He is on magnesium hydroxide 30 mL p.o. daily at bedtime p.r.n. He is on Solu-Medrol 40 mg IV q. 8 hours. He is on metoprolol 25 mg p.o. x1 and metoprolol 50 mg p.o. q. 12 hours. He is on mineral oil/petrolatum jelly 1 application topically daily. He is on Zofran 4 mg IV q. 8 hours p.r.n. He is on KCl 40 mEq p.o. x1. ALLERGIES: The patient is allergic to VANCOMYCIN. REVIEW OF SYSTEMS: CONSTITUTIONAL: History of developing fever after his abrasion of his skin after an accidental fall. There is no fatigue. There are no chills or rigors. HEAD: Denies headaches or head injury. History of malignant tumor removed from the left cartilage with no recurrence. EYES: No history of amblyopia or diplopia. No history of amaurosis fugax. EARS: No history of hearing loss. No history of tinnitus. No history of recurrent ear infections. THROAT: No history of odynophagia or dysphagia. No recurrent sore throats. NOSE: No history of hay fever. No history of nosebleeds. MOUTH: No history of altered taste sensation. No ulcers in the mouth. No bleeding from the gums. SKIN: History of seborrheic dermatitis of his face. There is no skin cancer. There is no pruritus. There is no yellowish discoloration of his skin. NECK: No history of painful swellings in the neck. No neck stiffness. no goiter. LUNGS: No history of asthma or COPD. No history of cough or sputum production, but the patient did have some cough with orthopnea and PND yesterday with shortness of breath which was due to volume overload/congestive heart failure versus secondary to the patient receiving IV fluids. Cough and volume overload all resolved with Lasix. no history of sleep apnea. No history of pleuritic chest pain. No hemoptysis. No history of pneumonia. CARDIAC: The patient denies any past history of atrial fibrillation. Even though, the patient is not symptomatic. He has no palpitations. There is no prior history of congestive heart failure, but the patient did have some volume overload/early heart failure yesterday which resolved with Lasix. No history of hypertension. No coronary artery disease, chest pains or angina. The patient has no history of PND or orthopnea. There is left leg edema now secondary to cellulitis but no prior history of leg edema. There is no syncope. The patient does not feel palpitations. There is new-onset atrial fibrillation. GASTROINTESTINAL: No history of GERD. No history of GI bleed. No history of fatty food intolerance. No history of peptic ulcer disease. No altered bowel movements. No diarrhea or constipation. MUSCULOSKELETAL: Denies any arthritis or collagen vascular disease. RENAL: No history of chronic kidney disease. No history of symptoms of UTI. No history of hematuria, pyuria, or dysuria. CENTRAL NERVOUS SYSTEM: History of cerebral palsy present. No history of TIA or CVA. No history of seizures. No history of headaches or migraines. No history of sleep apnea. The patient does have gait imbalance secondary to muscle weakness in his lower extremities due to cerebral palsy. He uses a cane to walk, but with the latter-day of cellulitis, the patient states that he can hardly walk. PSYCHIATRY: No history of anxiety or depression. No suicidal ideation. VASCULAR: No history of calf or buttock claudication. No history of DVT. HEMATOLOGICAL: No history of bleeding diathesis. No history of clotting disorders. PHYSICAL EXAMINATION: GENERAL: The patient is mildly to moderately obese, at present in no acute distress. VITAL SIGNS: He is afebrile with a temperature of 97.9 degrees Fahrenheit. Pulse was 94 beats per minute and later went up to 117. Blood pressure is 113/76. Respirations are 20 per minute. O2 saturations are 95% on room air. HEENT: Head is atraumatic and normocephalic. Eyes: Pupils are equal, round, regular, reactive to light and accommodation. Extraocular movements are normal. There is no conjunctival pallor. There is no scleral icterus. Ears: Tympanic membranes are intact. External auditory canals clear. Nose: There is no deviated nasal septum. There is no inflammation of the nasal mucous membranes. Mouth: Mucous membranes of the mouth are moist. Tongue is moist. There are no ulcers. There is no bleeding from the gums. Throat: There is no odynophagia or dysphagia. No history of recurrent sore throats. SKIN: The patient does have seborrheic dermatitis on the face. There are no petechiae or ecchymoses. No cancerous skin lesions. NECK: Supple. There is no JVD. Carotids are equal. There is no bruit. There is no lymphadenopathy. There is no goiter. LUNGS: Clear to auscultation and percussion. HEART: S1 and S2 are heard. S1 is of variable intensity. There is no S3 gallop. There is no S4 gallop. There is systolic murmur at the left apex and the left sternal border without any radiation. ABDOMEN: Soft, obese, nontender. There is no hepatosplenomegaly. Bowel sounds are well heard. EXTREMITIES: Femorals are slightly diminished. There are no femoral bruits. Leg pulses are well felt on the right side. There is difficulty palpating the tibial pulses in the left leg due to edema, but the capillary refill is normal in both lower extremities. There is [id number] edema in the left lower extremity with redness consistent with cellulitis. CENTRAL NERVOUS SYSTEM: The patient is conscious, awake, alert, oriented x3. There is weakness and spasticity of both lower extremities due to cerebral palsy. PSYCHIATRIC: The patient's judgment and insight are intact. His affect is normal. The patient does not appear to be agitated or depressed. DIAGNOSTIC TEST RESULTS: Tibiofibular x-ray of the left side: There is transverse lucency identified at the level of the patella on the cross table lateral view which appears to be related to previous trauma. However, clinical correlation is recommended. The patient's V/Q scan was negative for PE. The patient's EKG shows atrial fibrillation with rapid ventricular response. The patient's echocardiogram shows the left ventricle is normal in size. There is normal left ventricular wall thickness. *------* seems to be present. Left ventricular systolic function is normal. LV diastolic function could not be assessed due to atrial fibrillation. The left ventricular wall motion is normal. There is no thrombus. There is no ventricular septal defect visualized. Right ventricle is off axis, probably normal. The right atrium is normal. The left atrial size is normal. The interatrial septum is intact. There is no evidence of mitral valve prolapse. There is no vegetation seen on the mitral valve. There is no mitral valve stenosis. There is mild mitral regurgitation. The aortic valve is without aortic stenosis. There is no aortic regurgitation. There is no tricuspid stenosis. There is trace amount of tricuspid regurgitation. Right ventricular systolic pressure is normal. Right ventricular systolic pressure is 26 mmHg without any *------*. There is no pulmonic valvular stenosis. There is no pulmonic valvular regurgitation. The patient's chest x-ray shows volume overload, CHF. Shows cardiac enlargement and vascular enlargement. This was done yesterday due to volume overload, CHF. The patient's white count is 9100 done yesterday. Hemoglobin is 13.8. Hematocrit is 40.8. Platelet count is 154,000. The patient's sodium is 141.5. Potassium is 3.9. Chloride is 103. CO2 is 25. The patient's BUN is 18. Creatinine is 0.70. GFR is greater than 60. His magnesium is 1.6. Calcium is 8.8. Glucose is 93. Patient's NT-proBNP was 2380. The patient's cardiac enzymes were negative. His liver function tests on the showed normal liver function tests except for elevated total bilirubin of 1.9, question Gilbert syndrome. The patient's vitamin D is low at 17.2. His vitamin D1 25-dihydroxy is normal at 36.6. IMPRESSION: 1. New-onset atrial fibrillation with rapid ventricular response. Since the cellulitis is not fully controlled, would continue the patient on IV Cardizem. Would increase it to 10 mg/hr and watch the heart rate. Continue p.o. Cardizem and metoprolol for now. 2. Left lower extremity cellulitis secondary to accidental fall. 3. Transient volume overload, congestive heart failure, and also secondary to atrial fibrillation with rapid ventricular response, resolved with Lasix. 4. 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 Patient is on steroids and Benadryl. 5. Cerebral palsy. 6. Gait imbalance. 7. Seborrheic dermatitis of the face. RECOMMENDATIONS: As mentioned earlier, continue IV Cardizem and continue metoprolol. Increase the patient's Cardizem to 10 mg/hr infusion. The patient's CHADS score is 0. Hence, would recommend that the patient be on 325 mg of aspirin p.o. daily. Would recommend stopping the patient's Lasix and potassium for now. Discussed with the hospitalist. Discussed with the patient and patient's . Note that the patient is FULL CODE. His is his surrogate healthcare decision maker. Also discussed with the patient and the patient's the patient's echocardiographic findings and other findings. Recommendations as mentioned above. Would stop the patient's Lasix and also potassium. Note: Forty-five minutes spent on the patient. More than 50% of this time spent on direct patient care and also discussions with the hospitalist and with nursing providers on the case. Will follow with you. DICTATING PHYSICIAN: PATRICIA BEAR M.D. [id number] PHY#: [id number] ID: [id number] JOB#: [id number] ACCT: [id number] cc:PATRICIA BEAR M.D. >
[2016-12-18 22:15] LABS: ANION GAP 13 (5-19); BLOOD UREA NITROGEN 25 mg/dL (7-20); CARBON DIOXIDE 25 mmol/L (22-30); CHLORIDE 103 mmol/L (98-107); CREATININE RESULT 0.89 mg/dL (0.52-1.25); GLUCOSE 252 mg/dL (75-110); POTASSIUM 3.7 mmol/L (3.6-5.0); SODIUM 140.5 mmol/L (137-145)
[2016-12-19] MEDS: METHYLPREDNISOLONE INJ 40 MG/1 ML SDV IV SCH (02:36)
[2016-12-19 04:34] LABS: HEMOGLOBIN 13.9 g/dL (13.5-17.0); HGB HCT DIFFERENCE -0.3; MEAN CORPUSCULAR HEMOGLOBIN 29.2 pg (27.0-33.4); MEAN CORPUSCULAR HGB CONC 33.2 g/dL (32.0-36.0); MEAN CORPUSCULAR VOLUME 88 fl (80-97); RED BLOOD COUNT 4.77 10^6/uL (4.35-5.55); RED CELL DISTRIBUTION WIDTH 12.7 % (11.5-14.0); WHITE BLOOD COUNT 15.3 10^3/uL (4.0-10.5)
[2016-12-19] MEDS: DIPHENHYDRAMINE HCL 50 MG/ML VIAL IV SCH ×3 (06:00→17:36)
--- NOTE | 2016-12-19 08:52 | PDOC PROGRESS REPORT ---
Subjective Progress Note for:: 12/19/16 Subjective:: Patient is feeling well this morning He has no chest pain no palpitations no shortness of breath On the monitor is in atrial fibrillation at the rate of 80 to 100 He is still on the Cardizem drip at 5 mg/h The redness of her his back is dissipating slowly and there is decreased swelling and redness of the left lower extremity PT evaluation will be attempted And the Cardizem drip may be discontinued later this morning if rate permits Physical Exam Vital Signs: Temp Pulse Resp BP Pulse Ox 97.9 F 72 22 H 117/73 95 12/18/16 23:00 12/19/16 07:00 12/18/16 23:00 12/19/16 06:01 12/18/16 23:00 Intake & Output 12/18/16 12/19/16 12/20/16 00:59 00:59 00:59 Intake Total 3040 2436 410 Output Total 1945 2701 200 Balance 1095 -265 210 Weight 90 kg 88.5 kg 88.2 kg General appearance: PRESENT: no acute distress, well-developed, well-nourished Head exam: PRESENT: atraumatic, normocephalic Eye exam: PRESENT: conjunctiva pink, EOMI, PERRLA. ABSENT: scleral icterus Ear exam: PRESENT: normal external ear exam Mouth exam: PRESENT: moist, tongue midline Neck exam: ABSENT: carotid bruit, JVD, lymphadenopathy, thyromegaly Respiratory exam: PRESENT: clear to auscultation stacie. ABSENT: rales, rhonchi, wheezes Cardiovascular exam: PRESENT: RRR. ABSENT: diastolic murmur, rubs, systolic murmur Pulses: PRESENT: normal dorsalis pedis pul Vascular exam: PRESENT: normal capillary refill GI/Abdominal exam: PRESENT: normal bowel sounds, soft. ABSENT: distended, guarding, mass, organolmegaly, rebound, tenderness Rectal exam: PRESENT: deferred Extremities exam: PRESENT: full ROM, other - Decreased redness and swelling left lower extremity. ABSENT: calf tenderness, clubbing, pedal edema Neurological exam: PRESENT: alert, awake, oriented to person, oriented to place , oriented to time, oriented to situation, CN II-XII grossly intact. ABSENT: motor sensory deficit Psychiatric exam: PRESENT: appropriate affect, normal mood. ABSENT: homicidal ideation, suicidal ideation Skin exam: PRESENT: dry, intact, rash - Erythema of back still persistent But the skin is not as warm and redness not as intense Left lower extremity mild edema 1+ with the skin being more like pinkish from the foot to the knee no tenderness on palpation, warm. ABSENT: cyanosis Results Laboratory Results: 12/19/16 03:50 12/18/16 21:43 12/18/16 12/19/16 21:43 03:50 WBC 15.3 H RBC 4.77 Hgb 13.9 Hct 42.0 MCV 88 MCH 29.2 MCHC 33.2 RDW 12.7 Plt Count 203 Sodium 140.5 Potassium 3.7 Chloride 103 Carbon Dioxide 25 Anion Gap 13 BUN 25 H Creatinine 0.89 Est GFR ( Amer) > 60 Est GFR (Non-Af Amer) > 60 Glucose 252 H Calcium 9.0 12/16/16 12/16/16 12/17/16 17:00 22:40 04:24 Troponin I 0.019 0.014 0.015 NT-Pro-B Natriuret Pep 12/17/16 04:24 Troponin I NT-Pro-B Natriuret Pep 2380 H Impressions: Tibia/Fibula X-Ray 12/13/16 20:47 IMPRESSION: No evidence for acute fracture dislocation involving the tibia or fibula. Other findings as noted above Lung Scan-VQ NM 12/16/16 12:25 IMPRESSION: NORMAL VENTILATION-PERFUSION LUNG SCAN. NEGATIVE FOR PULMONARY EMBOLI. Chest X-Ray 12/17/16 08:03 IMPRESSION: CARDIAC ENLARGEMENT. VASCULAR CONGESTION. Assessment & Plan - Diagnosis (1) Cerebral palsy Is this a current diagnosis for this admission?: YesPlan: PT evaluation will be obtained today Usually patient ambulate with the brace to his right lower extremity and with a cane (2) Lower extremity cellulitis Qualifiers: Laterality: left Qualified Code(s): L03.116 - Cellulitis of left lower limb Is this a current diagnosis for this admission?: YesPlan: Is improving patient is currently on Zosyn And Zyvox Patient may be switched to by mouth antibiotics tomorrow; and discharged in 48 hours if atrial fibrillation remains controlled rate (3) DVT prophylaxis Is this a current diagnosis for this admission?: Yes (4) Full code status Is this a current diagnosis for this admission?: Yes (5) Seborrheic dermatitis Is this a current diagnosis for this admission?: Yes (6) PAF (paroxysmal atrial fibrillation) Is this a current diagnosis for this admission?: YesPlan: Continue Cardizem digoxin and metoprolol Continue Ecotrin 325 mg by mouth daily Patient had a vascular ginger score of 0 Patient wallace be followed as an outpatient by Dr. Ibarra (7) Allergic drug rash Is this a current diagnosis for this admission?: YesPlan: Allergic to vancomycin Continue prednisone 40 mg daily for 3 days and Benadryl when necessary - Time Time Spent with patient: Patient will need home health and home PT at discharge Time Spent with patient: 35 or more minutes Anticipated discharge: Home Within: within 48 hours
[2016-12-19] MEDS ORDERED: DILTIAZEM HCL 120 MG CAP.SR.24H PO SCH (09:00)
[2016-12-19] MEDS: ENOXAPARIN SODIUM INJ 100 MG/1 ML DISP.SYRIN SUBCUT SCH (10:06)
[2016-12-19] MEDS: MINERAL OIL/PETROLATUM,WHITE CREAM 114 GM TP SCH (10:06)
[2016-12-19] MEDS: LINEZOLID 300 ML IV SCH ×2 (10:06→21:40)
[2016-12-19] MEDS: KETOCONAZOLE 2% SHAMPOO 120 ML BOTTLE TP SCH (10:06)
[2016-12-19] MEDS: CALCIUM CARBONATE 500 MG TAB.CHEW PO SCH ×2 (10:07→17:37)
[2016-12-19] MEDS: PREDNISONE 20 MG TABLET PO SCH (10:07)
[2016-12-19] MEDS: FAMOTIDINE 20 MG TABLET PO SCH ×2 (10:08→21:41)
[2016-12-19] MEDS: CHOLECALCIFEROL (D3) 1,000 UNIT TABLET PO SCH (10:09)
[2016-12-19] MEDS: ASPIRIN 325 MG TABLET, ENT COATED PO SCH (10:09)
[2016-12-19] MEDS: DIGOXIN 0.25 MG TABLET PO SCH (10:09)
[2016-12-19] MEDS: DILTIAZEM HCL 180 MG CAPSULE.CR PO SCH ×2 (10:10→21:41)
[2016-12-19] MEDS: METOPROLOL TARTRATE 50 MG TABLET PO SCH ×2 (10:10→21:41)
[2016-12-19] MEDS: ASCORBIC ACID 500 MG TABLET PO SCH ×2 (10:11→17:37)
[2016-12-19] MEDS: DOCUSATE SODIUM 100 MG CAPSULE PO SCH ×2 (10:11→17:37)
[2016-12-19] MEDS: DILTIAZEM HCL/D5W 125 ML IV PRN (11:15)
[2016-12-19] MEDS ORDERED: DIGOXIN INJ 0.5 MG/2 ML AMPULE IV ONE (12:30)
--- NOTE | 2016-12-19 19:02 | EKG REPORT ---
SEVERITY:- ABNORMAL ECG - SINUS RHYTHM PROBABLE LEFT ATRIAL ABNORMALITY NONSPECIFIC T ABNORMALITIES, LATERAL LEADS : Confirmed by: Jose Lee 19-Dec-2016 19:01:22
--- NOTE | 2016-12-19 19:03 | PROGRESS NOTE E ---
Progress Note NAME: SUSANNAH SLOAN : 1960 AGE: 56Y DATE: 12/19/2016 ROOM: 302 SUBJECTIVE: The patient is still in atrial fibrillation with a rapid ventricular response. He denies any chest pain or discomfort. He has intermittent wheezing he says, but at present his lungs are clear. There is no chest pain or discomfort. There is no PND, orthopnea. His left leg cellulitis is very much improved. There are no TIA or CVA symptoms. Also, there are no ventricular arrhythmias on the monitor. There are aberrant atrial complexes seen from time to time. OBJECTIVE: GENERAL: On examination the patient is mildly to moderately, at present in no acute distress. VITAL SIGNS: He is afebrile with a temperature of 97.5 degrees Fahrenheit. His pulse is 113 beats per minute. Blood pressure 131/72. Respirations are 18 per minute. O2 saturations are 94% on room air. HEAD: Atraumatic/normocephalic. EYES: Pupils are equal, round, regular, reactive to light and accommodation. Extraocular movements are normal. There is no conjunctival pallor. There is no scleral icterus. EARS, NOSE, AND THROAT: Negative. NECK: Supple. There is no JVD. Carotids are equal. There is no bruit. There is no goiter. There is no lymphadenopathy. LUNGS: Clear to auscultation and percussion. HEART: S1, S2 is heard. There is no S3 gallop. There is no S4 gallop. S1 is of variable intensity. There is a systolic murmur in the left sternal border and the apex without any radiation. ABDOMEN: Soft, obese, nontender. There is no hepatosplenomegaly. Bowel sounds are well heard. EXTREMITIES: Femorals are slightly diminished. There is no femoral bruit. Leg pulses are well felt on the right side. The left leg tibial pulse is not felt. There is mild pedal edema, and the redness is almost completely resolved. CENTRAL NERVOUS SYSTEM: The patient is conscious, awake, alert, oriented x3. There is weakness and spasticity of both lower extremities due to cerebral palsy. PSYCHIATRIC: The patient's judgement and insight are intact. His affect is normal. The patient does not appear to be agitated or depressed. DIAGNOSTIC DATA: The patient's white count is 15,300, hemoglobin is 13, hematocrit is 42, platelet count is 203,000. The patient's sodium is 140.5, potassium 3.7, chloride 103, CO2 is 25, the patient's BUN is 25, creatinine is 0.80, greater than is greater than 60. His glucose is 252 and his calcium is 9.0. IMPRESSION: 1. ATRIAL FIBRILLATION WITH RAPID VENTRICULAR RESPONSE, CONTINUES TO BE SLIGHTLY ON THE FASTER SIDE. 2. LEFT LOWER EXTREMITY CELLULITIS SECONDARY TO ACCIDENTAL FALL, MUCH IMPROVED. 3. TRANSIENT VOLUME OVERLOADED CONGESTIVE HEART FAILURE AND ALSO DUE TO ATRIAL FIBRILLATION, AT PRESENT CONTROLLED. 4. 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 5. CEREBRAL PALSY. 6. GAIT IMBALANCE. 7. SEBORRHEIC DERMATITIS OF THE FACE. RECOMMENDATIONS: We will continue Cardizem at 10 mg tomorrow and will give an extra dose of 0.25 mg. Note also, the patient is on metoprolol 50 mg p.o. b.i.d. and also Digoxin 0.25 mg p.o. daily. We will check a Digoxin level in the a.m. Discussed with the patient and the patient's . Discussed with the hospitalist. Note, 35 minutes spent on this patient with more than 50% of the time spent in direct patient care and also discussions with the other caregivers in this case and also reviewing the patient's medications and adding medications. Dr. Lee will follow the patient in the morning. DICTATING PHYSICIAN: PATRICIA BEAR M.D. [id number] PHY#: [id number] ID: [id number] JOB#: [id number] ACCT: [id number] cc:PATRICIA BEAR M.D. >
[2016-12-20] MEDS: DIPHENHYDRAMINE HCL 50 MG/ML VIAL IV SCH ×5 (00:20→23:38)
[2016-12-20] MEDS: ENOXAPARIN SODIUM INJ 100 MG/1 ML DISP.SYRIN SUBCUT SCH (10:06)
[2016-12-20] MEDS: METOPROLOL TARTRATE 50 MG TABLET PO SCH ×2 (10:07→22:00)
[2016-12-20] MEDS: CALCIUM CARBONATE 500 MG TAB.CHEW PO SCH ×2 (10:08→17:15)
[2016-12-20] MEDS: ASCORBIC ACID 500 MG TABLET PO SCH ×2 (10:08→17:17)
[2016-12-20] MEDS: DILTIAZEM HCL 180 MG CAPSULE.CR PO SCH ×2 (10:09→22:01)
[2016-12-20] MEDS: DIGOXIN 0.25 MG TABLET PO SCH (10:09)
[2016-12-20] MEDS: CHOLECALCIFEROL (D3) 1,000 UNIT TABLET PO SCH (10:10)
[2016-12-20] MEDS: PREDNISONE 20 MG TABLET PO SCH (10:10)
[2016-12-20] MEDS: FAMOTIDINE 20 MG TABLET PO SCH ×2 (10:10→22:00)
[2016-12-20] MEDS: LINEZOLID 600 MG TABLET PO SCH ×2 (10:10→22:00)
[2016-12-20] MEDS: MINERAL OIL/PETROLATUM,WHITE CREAM 114 GM TP SCH (10:10)
[2016-12-20] MEDS: ASPIRIN 325 MG TABLET, ENT COATED PO SCH (10:10)
[2016-12-20] MEDS: DOCUSATE SODIUM 100 MG CAPSULE PO SCH ×2 (10:11→17:17)
[2016-12-20] MEDS: KETOCONAZOLE 2% SHAMPOO 120 ML BOTTLE TP SCH (10:11)
--- NOTE | 2016-12-20 10:51 | PDOC PROGRESS REPORT ---
Subjective Progress Note for:: 12/20/16 Subjective:: Patient seems to be doing better with gradual improvement. Pt is denying any chest arm or neck discomfort. Patient denying any PND, orthopnea. Patient denied any sustained palpitations, dizziness, syncope, near syncope. Patient denying any fever chills. Patient denying any other significant discomfort. Patient is maintaining sinus rhythm. Patient converted to sinus rhythm sometimes last night. Review of systems: Rest review of systems negative. Medications: Medications have been reviewed. Physical Exam Vital Signs: Temp Pulse Resp BP Pulse Ox 97.3 F 62 20 117/81 94 12/20/16 07:38 12/20/16 07:38 12/20/16 07:38 12/20/16 07:38 12/20/16 07:38 Intake & Output 12/19/16 12/20/16 12/21/16 06:59 06:59 06:59 Intake Total 1862 2100 Output Total 1250 1100 Balance 612 1000 Weight 88.2 kg 88.6 kg Exam: GENERAL: well-nourished and in no acute distress. Alert and oriented x3 HEAD: Atraumatic, normocephalic. Dermatitis rash noted all over his face. Seems like seborrheic dermatitis. EYES: Pupils equal round and reactive to light, extraocular movements intact, sclera anicteric, conjunctiva are normal. ENT: TMs normal, nares patent, oropharynx clear without exudates. Moist mucous membranes. No oral ulcerations or bleeding gums noted NECK: supple without lymphadenopathy. Trachea is central. No cervical or axillary lymphadenopathy noted. Carotids are 2+, JVD WNL LUNGS: Respiration seems nonlabored, no significant accessory muscle action noted. Breath sounds clear to auscultation bilaterally and equal. No wheezes rales or rhonchi. No significant dullness noted on percussion. CHEST: Palpation of the chest wall shows no significant chest wall tenderness or abnormalities. 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 ABDOMEN: Soft, no significant tenderness appreciated, normoactive bowel sounds. No guarding, no rebound. No rigidity noted . No masses appreciated. EXTREMITIES: Pedal pulses are 1-2+, no calf tenderness noted. No clubbing or cyanosis.1+ pedal edema noted NEUROLOGICAL: Focused neurological exam showed no significant neurologic deficit. Normal speech, findings of cerebral palsy affecting lower extremity more than upper extremity. Patient claims findings at baseline. PSYCH: Normal mood, normal affect. Judgment and insight within normal limits. SKIN: No significant ecchymosis, mild cellulitic rash noted on his back and also on both lower extremity. MUSCULOSKELETAL EXAM: No significant joint swelling noted. Findings of cerebral palsy with some deformity of both feet noted. Results Laboratory Results: 12/19/16 03:50 12/18/16 21:43 12/16/16 12/16/16 12/17/16 17:00 22:40 04:24 Troponin I 0.019 0.014 0.015 NT-Pro-B Natriuret Pep 12/17/16 04:24 Troponin I NT-Pro-B Natriuret Pep 2380 H Impressions: Tibia/Fibula X-Ray 12/13/16 20:47 IMPRESSION: No evidence for acute fracture dislocation involving the tibia or fibula. Other findings as noted above Lung Scan-VQ NM 12/16/16 12:25 IMPRESSION: NORMAL VENTILATION-PERFUSION LUNG SCAN. NEGATIVE FOR PULMONARY EMBOLI. Chest X-Ray 12/17/16 08:03 IMPRESSION: CARDIAC ENLARGEMENT. VASCULAR CONGESTION. Assessment & Plan - Diagnosis (1) Congestive heart failure Qualifiers: Congestive heart failure type: diastolic Congestive heart failure chronicity: acute Qualified Code(s): I50.31 - Acute diastolic (congestive ) heart failure Is this a current diagnosis for this admission?: YesPlan: Most likely precipitated by atrial fibrillation with rapid ventricular response and volume overload. 2-D echo results reviewed. Continue diuretic therapy. Patient may benefit from a sleep study. (2) Acute seborrheic dermatitis Is this a current diagnosis for this admission?: YesPlan: Continue Nizoral shampoo and may considered low strength corticosteroid ointment. (3) Cerebral palsy Qualifiers: Cerebral palsy type: unspecified type Qualified Code(s): G80.9 - Cerebral palsy, unspecified Is this a current diagnosis for this admission?: YesPlan: Currently stable without any new neurological changes. (4) Lower extremity cellulitis Qualifiers: Laterality: unspecified laterality Qualified Code(s): L03.119 - Cellulitis of unspecified part of limb Is this a current diagnosis for this admission?: YesPlan: These are improving. (5) PAF (paroxysmal atrial fibrillation) Is this a current diagnosis for this admission?: YesPlan: Patient maintaining sinus rhythm. Most likely precipitated by cellulitis. Other precipitating factors could be diastolic dysfunction and underlying sleep apnea. Patient does give history of snoring. Would recommend that patient be scheduled for a sleep study. We will also recommend ELIQUIS at 5 mg by mouth twice a day for one month. - Notes Notes: CODE STATUS was discussed, patient remains full code. Surrogate decision-maker unchanged. Multiple medical problems were addressed. - Time Time with patient: 15-25 minutes - More than 50% of the time spent coordinating care, discussing management plans with involved caregivers. Management plans discussed with involved personnels. Medical decision making was of moderate complexity. Medications reviewed and adjusted accordingly: Yes
--- NOTE | 2016-12-20 12:05 | PDOC PROGRESS REPORT ---
Subjective Progress Note for:: 12/20/16 Subjective:: SUSANNAH SLOAN is a 56 year old male with a past medical history of cerebral palsy who had been in his usual state of health until approximately 48 hours ago sustained a slip and fall resulting in an abrasion to his left john and subsequently developed fever, markedly erythema pain and swelling extending from the mid foot to the knee. In the emergency room he is received a tetanus booster and vancomycin referred to the hospitalist for admission. He has no chest pain no palpitations no shortness of breath On the monitor is in atrial fibrillation at the rate of 80 to 100 He is still on the Cardizem drip at 5 mg/h The redness of her his back is dissipating slowly and there is decreased swelling and redness of the left lower extremity Physical Exam Vital Signs: Temp Pulse Resp BP Pulse Ox 97.3 F 62 20 117/81 94 12/20/16 07:38 12/20/16 07:38 12/20/16 07:38 12/20/16 07:38 12/20/16 07:38 Intake & Output 12/19/16 12/20/16 12/21/16 06:59 06:59 06:59 Intake Total 1862 2100 Output Total 1250 1100 Balance 612 1000 Weight 88.2 kg 88.6 kg General appearance: PRESENT: no acute distress Head exam: PRESENT: atraumatic, normocephalic Eye exam: PRESENT: conjunctiva pink, EOMI, PERRLA. ABSENT: scleral icterus Mouth exam: PRESENT: moist, tongue midline Neck exam: ABSENT: JVD Respiratory exam: PRESENT: clear to auscultation stacie, crackles - Bilateral bases. ABSENT: rhonchi, wheezes Cardiovascular exam: PRESENT: RRR. ABSENT: systolic murmur Pulses: PRESENT: normal radial pulses GI/Abdominal exam: PRESENT: normal bowel sounds, soft. ABSENT: distended, guarding, rebound, tenderness Extremities exam: PRESENT: pedal edema - Asymmetric left greater than right Musculoskeletal exam: PRESENT: deformity Psychiatric exam: PRESENT: appropriate affect, normal mood Skin exam: PRESENT: dry, erythema - Starting to recede from the demarcation lines drawn previously Results Laboratory Results: 12/19/16 03:50 12/18/16 21:43 12/16/16 12/16/16 12/17/16 17:00 22:40 04:24 Troponin I 0.019 0.014 0.015 NT-Pro-B Natriuret Pep 12/17/16 04:24 Troponin I NT-Pro-B Natriuret Pep 2380 H Impressions: Tibia/Fibula X-Ray 12/13/16 20:47 IMPRESSION: No evidence for acute fracture dislocation involving the tibia or fibula. Other findings as noted above Lung Scan-VQ NM 12/16/16 12:25 IMPRESSION: NORMAL VENTILATION-PERFUSION LUNG SCAN. NEGATIVE FOR PULMONARY EMBOLI. Chest X-Ray 12/17/16 08:03 IMPRESSION: CARDIAC ENLARGEMENT. VASCULAR CONGESTION. Assessment & Plan - Diagnosis (1) Lower extremity cellulitis Qualifiers: Laterality: unspecified laterality Qualified Code(s): L03.119 - Cellulitis of unspecified part of limb Is this a current diagnosis for this admission?: YesPlan: Continue Zyvox and low-dose diuretics (2) PAF (paroxysmal atrial fibrillation) Is this a current diagnosis for this admission?: YesPlan: Converted sinus rhythm, continue current care with digoxin and Cardizem and Lopressor. Many thanks to cardiology for their input. (3) Acute seborrheic dermatitis Is this a current diagnosis for this admission?: YesPlan: Continue topical care (4) Cerebral palsy Qualifiers: Cerebral palsy type: unspecified type Qualified Code(s): G80.9 - Cerebral palsy, unspecified Is this a current diagnosis for this admission?: YesPlan: At baseline (5) Full code status Is this a current diagnosis for this admission?: Yes - Time Time Spent with patient: 25-34 minutes Anticipated discharge: Home with Homehealth Within: within 24 hours - Hopefully home in the morning
[2016-12-20] MEDS ORDERED: FUROSEMIDE 20 MG TABLET PO ONE (12:45)
[2016-12-20] MEDS: LACTOBACILLUS ACIDOPHILUS 250 MG TAB PO SCH (17:16)
[2016-12-20] MEDS: APIXABAN 5 MG TABLET PO SCH (17:17)
[2016-12-20] MEDS ORDERED: APIXABAN 2.5 MG TABLET PO SCH (18:00)
[2016-12-21 04:41] LABS: HEMATOCRIT 40.2 % (37.9-51.0); HEMOGLOBIN 13.3 g/dL (13.5-17.0); HGB HCT DIFFERENCE -0.3; MEAN CORPUSCULAR HEMOGLOBIN 28.9 pg (27.0-33.4); MEAN CORPUSCULAR VOLUME 88 fl (80-97); RED BLOOD COUNT 4.59 10^6/uL (4.35-5.55); RED CELL DISTRIBUTION WIDTH 12.6 % (11.5-14.0)
[2016-12-21] MEDS: DIPHENHYDRAMINE HCL 50 MG/ML VIAL IV SCH ×3 (07:12→17:16)
[2016-12-21] MEDS: CALCIUM CARBONATE 500 MG TAB.CHEW PO SCH ×2 (10:17→17:16)
[2016-12-21] MEDS: LACTOBACILLUS ACIDOPHILUS 250 MG TAB PO SCH ×2 (10:17→17:16)
[2016-12-21] MEDS: FUROSEMIDE 20 MG TABLET PO SCH (10:17)
[2016-12-21] MEDS: CHOLECALCIFEROL (D3) 1,000 UNIT TABLET PO SCH (10:18)
[2016-12-21] MEDS: FAMOTIDINE 20 MG TABLET PO SCH ×2 (10:18→21:20)
[2016-12-21] MEDS: LINEZOLID 600 MG TABLET PO SCH ×2 (10:18→21:20)
[2016-12-21] MEDS: APIXABAN 5 MG TABLET PO SCH ×2 (10:18→17:16)
[2016-12-21] MEDS: MINERAL OIL/PETROLATUM,WHITE CREAM 114 GM TP SCH (10:19)
[2016-12-21] MEDS: DOCUSATE SODIUM 100 MG CAPSULE PO SCH ×2 (10:19→17:17)
[2016-12-21] MEDS: KETOCONAZOLE 2% SHAMPOO 120 ML BOTTLE TP SCH (10:19)
[2016-12-21] MEDS: ASCORBIC ACID 500 MG TABLET PO SCH ×2 (10:19→17:17)
[2016-12-21] MEDS ORDERED: DILTIAZEM HCL 180 MG CAPSULE.CR PO SCH (10:35)
[2016-12-21 10:40] LABS: APPEARANCE,URINE CLEAR; BILIRUBIN,URINE NEGATIVE (NEGATIVE); GLUCOSE, URINE NEGATIVE (NEGATIVE); KETONES,URINE NEGATIVE (NEGATIVE); LEUKOCYTE ESTERASE,URINE NEGATIVE (NEGATIVE); NITRITE,URINE NEGATIVE (NEGATIVE); PROTEIN,URINE NEGATIVE (NEGATIVE); URINE SPECIFIC GRAVITY 1.026; UROBILINOGEN,URINE NEGATIVE mg/dL (<2.0)
--- NOTE | 2016-12-21 11:06 | PDOC PROGRESS REPORT ---
Subjective Progress Note for:: 12/21/16 Subjective:: Patient seems to be doing better with gradual improvement. Pt is denying any chest arm or neck discomfort. Patient denying any PND, orthopnea. Patient denied any sustained palpitations, dizziness, syncope, near syncope. Patient denying any fever chills. Patient denying any other significant discomfort. Patient is maintaining sinus rhythm. Patient noted to have bradycardia in sleep. He was basically asymptomatic. Review of systems: Rest review of systems negative. Medications: Medications have been reviewed. On questioning patient does admit to having history of snoring and multiple nocturnal awakening. Physical Exam Vital Signs: Temp Pulse Resp BP Pulse Ox 97.4 F 47 L 19 132/91 H 100 12/21/16 07:35 12/21/16 07:35 12/21/16 07:35 12/21/16 07:35 12/21/16 07:35 Intake & Output 12/20/16 12/21/16 12/22/16 06:59 06:59 06:59 Intake Total 2100 2197 Output Total 1100 820 Balance 1000 1377 Weight 88.6 kg 88.4 kg Exam: GENERAL: well-nourished and in no acute distress. Alert and oriented x3 HEAD: Atraumatic, normocephalic. Dermatitis rash noted all over his face. Seems like seborrheic dermatitis. EYES: Pupils equal round and reactive to light, extraocular movements intact, sclera anicteric, conjunctiva are normal. ENT: TMs normal, nares patent, oropharynx clear without exudates. Moist mucous membranes. No oral ulcerations or bleeding gums noted NECK: supple without lymphadenopathy. Trachea is central. No cervical or axillary lymphadenopathy noted. Carotids are 2+, JVD WNL LUNGS: Respiration seems nonlabored, no significant accessory muscle action noted. Breath sounds clear to auscultation bilaterally and equal. No wheezes rales or rhonchi. No significant dullness noted on percussion. CHEST: Palpation of the chest wall shows no significant chest wall tenderness or abnormalities. 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 ABDOMEN: Soft, no significant tenderness appreciated, normoactive bowel sounds. No guarding, no rebound. No rigidity noted . No masses appreciated. EXTREMITIES: Pedal pulses are 1-2+, no calf tenderness noted. No clubbing or cyanosis.1+ pedal edema noted NEUROLOGICAL: Focused neurological exam showed no significant neurologic deficit. Normal speech, findings of cerebral palsy affecting lower extremity more than upper extremity. Patient claims findings at baseline. PSYCH: Normal mood, normal affect. Judgment and insight within normal limits. SKIN: No significant ecchymosis, mild cellulitic rash noted on his back and also on both lower extremity. MUSCULOSKELETAL EXAM: No significant joint swelling noted. Findings of cerebral palsy with some deformity of both feet noted. Results Laboratory Results: 12/21/16 03:39 12/18/16 21:43 12/21/16 12/21/16 12/21/16 03:39 10:05 10:15 WBC 15.0 H RBC 4.59 Hgb 13.3 L Hct 40.2 MCV 88 MCH 28.9 MCHC 33.0 RDW 12.6 Plt Count 222 Urine Color YELLOW Urine Appearance CLEAR Urine pH 6.0 Ur Specific [place] 1.026 Urine Protein NEGATIVE Urine Glucose (UA) NEGATIVE Urine Ketones NEGATIVE Urine Blood NEGATIVE Urine Nitrite NEGATIVE Ur Leukocyte Esterase NEGATIVE Urine WBC (Auto) 1 Stool Occult Blood NEGATIVE 12/16/16 12/16/16 12/17/16 17:00 22:40 04:24 Troponin I 0.019 0.014 0.015 NT-Pro-B Natriuret Pep 12/17/16 04:24 Troponin I NT-Pro-B Natriuret Pep 2380 H Impressions: Tibia/Fibula X-Ray 12/13/16 20:47 IMPRESSION: No evidence for acute fracture dislocation involving the tibia or fibula. Other findings as noted above Lung Scan-VQ NM 12/16/16 12:25 IMPRESSION: NORMAL VENTILATION-PERFUSION LUNG SCAN. NEGATIVE FOR PULMONARY EMBOLI. Chest X-Ray 12/17/16 08:03 IMPRESSION: CARDIAC ENLARGEMENT. VASCULAR CONGESTION. Assessment & Plan - Diagnosis (1) Congestive heart failure Qualifiers: Congestive heart failure type: diastolic Congestive heart failure chronicity: acute Qualified Code(s): I50.31 - Acute diastolic (congestive ) heart failure Is this a current diagnosis for this admission?: Yes (2) Acute seborrheic dermatitis Is this a current diagnosis for this admission?: Yes (3) Cerebral palsy Qualifiers: Cerebral palsy type: unspecified type Qualified Code(s): G80.9 - Cerebral palsy, unspecified Is this a current diagnosis for this admission?: Yes (4) Lower extremity cellulitis Qualifiers: Laterality: unspecified laterality Qualified Code(s): L03.119 - Cellulitis of unspecified part of limb Is this a current diagnosis for this admission?: Yes (5) PAF (paroxysmal atrial fibrillation) Is this a current diagnosis for this admission?: Yes (6) Sleep disorder breathing Is this a current diagnosis for this admission?: Yes (7) Obesity Is this a current diagnosis for this admission?: Yes - Notes Notes: Congestive heart failure: Seems compensated. Continue baseline diuretic therapy. This is related to diastolic dysfunction, being precipitated by atrial fibrillation. Nocturnal bradycardia: Most likely related to underlying sleep apnea syndrome. Patient will benefit from a sleep study. This will be scheduled as an outpatient. Lower extremity cellulitis: This is improving. Paroxysmal atrial fibrillation: Recommend chronic anticoagulation at least for a month. We will decide length of anticoagulation in follow-up. Seborrheic dermatitis: Continue current management plans. Cerebral palsy: Currently stable. Obesity: Patient encouraged to lose weight. - Time Time with patient: 15-25 minutes - CODE STATUS was discussed, patient remains full code. Surrogate decision-maker unchanged. Multiple medical problems were addressed.More than 50% of the time spent coordinating care, discussing management plans with involved caregivers. Management plans discussed with involved personnels. Medical decision making was of moderate complexity.
--- NOTE | 2016-12-21 11:28 | PDOC PROGRESS REPORT ---
Subjective Progress Note for:: 12/21/16 Subjective:: SUSANNAH SLOAN is a 56 year old male with a past medical history of cerebral palsy who had been in his usual state of health until approximately 48 hours ago sustained a slip and fall resulting in an abrasion to his left john and subsequently developed fever, markedly erythema pain and swelling extending from the mid foot to the knee. In the emergency room he is received a tetanus booster and vancomycin referred to the hospitalist for admission. He has no chest pain no palpitations no shortness of breath On the monitor is in atrial fibrillation at the rate of 80 to 100 He is still on the Cardizem drip at 5 mg/h The redness of her his back is dissipating slowly and there is decreased swelling and redness of the left lower extremity. Noted during the night to be bradycardic with heart rate dipping into the 30s and remains bradycardic even awake this morning with heart rate maintaining in the high 40s. He is asymptomatic. He has been up walking, usually uses a cane and is ambulating as usual. The left lower extremity remains edematous but the erythema is improving and he denies pain in the limb. ROS: Total 10 systems are reviewed with the patient prior to positives and negatives noted above during systems are negative. Physical Exam Vital Signs: Temp Pulse Resp BP Pulse Ox 97.4 F 47 L 19 132/91 H 100 12/21/16 07:35 12/21/16 07:35 12/21/16 07:35 12/21/16 07:35 12/21/16 07:35 Intake & Output 12/20/16 12/21/16 12/22/16 06:59 06:59 06:59 Intake Total 2100 2197 Output Total 1100 820 Balance 1000 1377 Weight 88.6 kg 88.4 kg General appearance: PRESENT: no acute distress, well-developed, well-nourished Head exam: PRESENT: atraumatic, normocephalic Eye exam: PRESENT: conjunctiva pink, EOMI, PERRLA. ABSENT: scleral icterus Neck exam: ABSENT: JVD, tenderness Respiratory exam: PRESENT: clear to auscultation stacie. ABSENT: rales, rhonchi, wheezes Cardiovascular exam: PRESENT: RRR - Remains in normal sinus rhythm.. ABSENT: diastolic murmur, rubs, systolic murmur Pulses: PRESENT: normal radial pulses GI/Abdominal exam: PRESENT: normal bowel sounds, soft. ABSENT: distended, guarding, mass, organolmegaly, rebound, tenderness Extremities exam: PRESENT: +1 edema - Asymmetric left greater than right. ABSENT: calf tenderness Musculoskeletal exam: PRESENT: ambulatory Neurological exam: PRESENT: alert, awake, oriented to person, oriented to place , oriented to situation Psychiatric exam: PRESENT: appropriate affect, normal mood Skin exam: PRESENT: erythema - Very mild of the left lower extremity continues to recede., warm - But not hot Results Laboratory Results: 12/21/16 03:39 12/18/16 21:43 12/21/16 12/21/16 12/21/16 03:39 10:05 10:15 WBC 15.0 H RBC 4.59 Hgb 13.3 L Hct 40.2 MCV 88 MCH 28.9 MCHC 33.0 RDW 12.6 Plt Count 222 Urine Color YELLOW Urine Appearance CLEAR Urine pH 6.0 Ur Specific [place] 1.026 Urine Protein NEGATIVE Urine Glucose (UA) NEGATIVE Urine Ketones NEGATIVE Urine Blood NEGATIVE Urine Nitrite NEGATIVE Ur Leukocyte Esterase NEGATIVE Urine WBC (Auto) 1 Stool Occult Blood NEGATIVE 12/16/16 12/16/16 12/17/16 17:00 22:40 04:24 Troponin I 0.019 0.014 0.015 NT-Pro-B Natriuret Pep 12/17/16 04:24 Troponin I NT-Pro-B Natriuret Pep 2380 H Impressions: Tibia/Fibula X-Ray 12/13/16 20:47 IMPRESSION: No evidence for acute fracture dislocation involving the tibia or fibula. Other findings as noted above Lung Scan-VQ NM 12/16/16 12:25 IMPRESSION: NORMAL VENTILATION-PERFUSION LUNG SCAN. NEGATIVE FOR PULMONARY EMBOLI. Chest X-Ray 12/17/16 08:03 IMPRESSION: CARDIAC ENLARGEMENT. VASCULAR CONGESTION. Assessment & Plan - Diagnosis (1) Lower extremity cellulitis Qualifiers: Laterality: unspecified laterality Qualified Code(s): L03.119 - Cellulitis of unspecified part of limb Is this a current diagnosis for this admission?: YesPlan: Continues to improve. Continue Zyvox and low-dose diuretics (2) PAF (paroxysmal atrial fibrillation) Is this a current diagnosis for this admission?: YesPlan: Converted sinus rhythm, continue current care with Cardizem and discontinue digoxin and Lopressor due to bradycardia and to continue to monitor heart rate. Many thanks to cardiology for their input, agree there may be a component of sleep apnea contributing to some of his bradycardia but most likely this is medication induced. Continue anticoagulation. (3) Acute seborrheic dermatitis Is this a current diagnosis for this admission?: YesPlan: Continue topical care (4) Cerebral palsy Qualifiers: Cerebral palsy type: unspecified type Qualified Code(s): G80.9 - Cerebral palsy, unspecified Is this a current diagnosis for this admission?: YesPlan: At baseline (5) Full code status Is this a current diagnosis for this admission?: Yes - Time Time Spent with patient: 25-34 minutes Anticipated discharge: Home with Homehealth Within: within 24 hours - If we can maintain sinus rhythm and eliminate the bradycardia by titrating his medication regimen he can likely go home in the morning
[2016-12-21] MEDS ORDERED: DILTIAZEM HCL 180 MG CAPSULE.CR PO ONE (12:00)
[2016-12-21] MEDS: DILTIAZEM HCL 180 MG CAPSULE.CR PO SCH (21:21)
[2016-12-22] MEDS: DIPHENHYDRAMINE HCL 50 MG/ML VIAL IV SCH ×2 (00:27→05:50)
[2016-12-22 08:31] LABS: ANION GAP 9 (5-19); BLOOD UREA NITROGEN 29 mg/dL (7-20); CALCIUM 8.5 mg/dL (8.4-10.2); CARBON DIOXIDE 29 mmol/L (22-30); CHLORIDE 103 mmol/L (98-107); CREATININE RESULT 0.74 mg/dL (0.52-1.25); GLUCOSE 78 mg/dL (75-110); POTASSIUM 4.4 mmol/L (3.6-5.0); SODIUM 140.7 mmol/L (137-145)
[2016-12-22] MEDS: DOCUSATE SODIUM 100 MG CAPSULE PO SCH (10:05)
[2016-12-22] MEDS: FUROSEMIDE 20 MG TABLET PO SCH (10:06)
[2016-12-22] MEDS: FAMOTIDINE 20 MG TABLET PO SCH (10:06)
[2016-12-22] MEDS: APIXABAN 5 MG TABLET PO SCH (10:06)
[2016-12-22] MEDS: DILTIAZEM HCL 180 MG CAPSULE.CR PO SCH (10:06)
[2016-12-22] MEDS: LINEZOLID 600 MG TABLET PO SCH (10:07)
[2016-12-22] MEDS: LACTOBACILLUS ACIDOPHILUS 250 MG TAB PO SCH (10:07)
[2016-12-22] MEDS: CHOLECALCIFEROL (D3) 1,000 UNIT TABLET PO SCH (10:07)
[2016-12-22] MEDS: CALCIUM CARBONATE 500 MG TAB.CHEW PO SCH (10:08)
[2016-12-22] MEDS: MINERAL OIL/PETROLATUM,WHITE CREAM 114 GM TP SCH (10:10)
[2016-12-22] MEDS: ASCORBIC ACID 500 MG TABLET PO SCH (10:11)
[2016-12-22] MEDS: KETOCONAZOLE 2% SHAMPOO 120 ML BOTTLE TP SCH (10:11)
[2016-12-22 11:57] VITALS: BP 126/68
--- NOTE | 2016-12-22 14:43 | PDOC DISCHARGE SUMMARY ---
General - Admit/Disc Date/PCP Admission Date/Primary Care Provider: 12/13/16 23:45 MARTÍNEZ CRAFT MD Discharge Date: 12/22/16 - Discharge Diagnosis (1) Lower extremity cellulitis Is this a current diagnosis for this admission?: YesSummary: Treated with Zyvox successfully however is exorbitantly expensive as an outpatient and no organism was ever cultured were identified as the offending pathogen. We'll change to clindamycin for an additional 10 days and instructed to follow-up with his primary care provider in one week to make sure this continues to clear. (2) PAF (paroxysmal atrial fibrillation) Is this a current diagnosis for this admission?: YesSummary: Continue on Cardizem for rate control, his regimen was weaned significantly taking him off digoxin and a dual beta carter therapy with metoprolol due to the development of bradycardia particularly at night. He converted to normal sinus rhythm many days ago and maintains in that rhythm until discharge. He is to follow-up with Dr. Hartley for further dose adjustments. His anticoagulation was changed from [place] is relatively due to financial concerns related to his insurance coverage. (3) Acute seborrheic dermatitis Is this a current diagnosis for this admission?: YesSummary: Continue topical treatment at home. (4) Cerebral palsy Is this a current diagnosis for this admission?: YesSummary: At baseline (5) Full code status Is this a current diagnosis for this admission?: Yes - Additional Information Resuscitation Status: Full Code Discharge Diet: Cardiac Discharge Activity: Slowly Increase Activity Home Medications: Tamsulosin HCl [Flomax 0.4 mg Cap.sr] 0.4 mg PO DAILY 12/14/16 Acetaminophen [Tylenol 325 mg Tablet] 650 mg PO Q4HP PRN tablet 12/22/16 Ascorbic Acid [Vitamin C 500 mg Tablet] 1,000 mg PO BID tablet 12/22/16 Calcium Carbonate [Tums Chewable 500 mg Tab.chew] 1,000 mg PO BID tab.chew Cholecalciferol (Vitamin D3) [Vitamin D3 1000 Unit Tablet] 1,000 unit PO DAILY # 30 tablet 12/22/16 Clindamycin HCl [Cleocin 300 mg Capsule] 600 mg PO Q6 #40 cap 12/22/16 Diltiazem HCl 120 mg PO BID #60 tablet 12/22/16 Furosemide [Lasix 20 mg Tablet] 20 mg PO DAILY #30 tablet 12/22/16 Ketoconazole [Nizoral 2% Shampoo 120 ml Bottle] 1 applic TP DAILY #1 bottle Lactobacillus Acidophilus [Acidophilus Probiotic] 1 mg PO BIDACBL #60 capsule Potassium Chloride [K-Tab] 10 meq PO DAILY #30 tablet.sa 12/22/16 Rivaroxaban [Xarelto] 20 mg PO DAILY #30 tablet 12/22/16 History of Present Illness Patient complains of: Pain and swelling in the left leg History of Present Illness: SUSANNAH SLOAN is a 56 year old male with a past medical history of cerebral palsy who had been in his usual state of health until approximately 48 hours ago sustained a slip and fall resulting in an abrasion to his left john and subsequently developed fever, markedly erythema pain and swelling extending from the mid foot to the knee. In the emergency room he is received a tetanus booster and vancomycin referred to the hospitalist for admission. Hospital Course Hospital Course: He was admitted to the hospital and started on vancomycin but had an unfortunate reaction with red man syndrome that dissipated with cessation of the drug. He was changed to Zyvox with good results and improved erythema and less swelling in the left lower extremity. Imaging failed to reveal an obstructing lesion like a DVT. He was started on a low-dose diuretic with good improvement in the lower extremity edema. His hospital course was complicated by atrial fibrillation at the rate of 80 to 100, he was transitioned from a Cardizem drip to oral regimen and converted to normal sinus rhythm and is maintained throughout the last several days. Cardiology was consulted and help guide his therapy throughout his hospitalization he should follow up with cardiology in 1 week for further dose adjustments. Noted during the night to be bradycardic with heart rate dipping into the 30s and remains bradycardic even awake this morning with heart rate maintaining in the high 40s. He is asymptomatic. He has been up walking, usually uses a cane and is ambulating as usual. The left lower extremity remains edematous but the erythema is improving and he denies pain in the limb. With stabilization of his hemodynamics including his heart rate and improvement in his condition he is now stable for discharge home. He expresses no concerns about going home today. Physical Exam Vital Signs: Temp Pulse Resp BP Pulse Ox 97.3 F 69 19 126/68 H 98 12/22/16 11:52 12/22/16 11:52 12/22/16 11:52 12/22/16 11:52 12/22/16 11:52 Intake & Output 12/21/16 12/22/16 12/23/16 06:59 06:59 06:59 Intake Total 2197 1489 Output Total 820 600 Balance 1377 889 Weight 88.4 kg 87 kg EXAM GENERAL: NAD; well developed, well nourished; no obese; alert and oriented to person, place, time, situation HEENT: normocephalic, atraumatic; no conjunctival injection, no scleral icterus ; oral mucosa moist; RESPIRATORY: no accessory muscle use, no increased WOB, good air entry bilaterally; no wheezes, rales, rhonchi; no inspiratory crackles CARDIO: no JVD; RRR; no systolic murmur; no tachycardia GI: soft; nondistended; normal bowel sounds; no hepato spleno megaly; no rebound, rigidity, guarding VASCULAR: no carotid bruit; no abdominal bruit; no pallor; 2+ radial, DP pulse ; normal capillary refill EXTREMITIES: no calf tender; no palpable cords in calf; no clubbing, cyanosis ; persistent pedal edema left greater than right but improved from presentation PSYCH: normal affect, normal mood SKIN: warm; moist; no petechiae; no telengectasias; no jaundice; chronic rash as before, improved Results Laboratory Results: 12/21/16 03:39 12/22/16 08:03 12/22/16 08:03 Sodium 140.7 Potassium 4.4 Chloride 103 Carbon Dioxide 29 Anion Gap 9 BUN 29 H Creatinine 0.74 Est GFR ( Amer) > 60 Est GFR (Non-Af Amer) > 60 Glucose 78 Calcium 8.5 12/16/16 12/16/16 12/17/16 17:00 22:40 04:24 Troponin I 0.019 0.014 0.015 NT-Pro-B Natriuret Pep 12/17/16 12/22/16 04:24 08:03 Troponin I NT-Pro-B Natriuret Pep 2380 H 188 Impressions: Tibia/Fibula X-Ray 12/13/16 20:47 IMPRESSION: No evidence for acute fracture dislocation involving the tibia or fibula. Other findings as noted above Lung Scan-VQ NM 12/16/16 12:25 IMPRESSION: NORMAL VENTILATION-PERFUSION LUNG SCAN. NEGATIVE FOR PULMONARY EMBOLI. Chest X-Ray 12/17/16 08:03 IMPRESSION: CARDIAC ENLARGEMENT. VASCULAR CONGESTION. Qualifiers PATEINT BEING DISCHARGED WITH ANY OF THE FOLLOWING DIAGNOSIS?: No Plan Discharge Plan: Discharge home with continued oral antibiotics and follow-up with his primary care provider for the lower john cellulitis. Continue calcium channel carter for rate control and is around toe for stroke prophylaxis related to his new onset atrial fibrillation. He is follow-up with cardiology in 1 week. Time Spent: Greater than 30 Minutes
--- NOTE | 2016-12-22 19:33 | PDOC PROGRESS REPORT ---
Subjective Progress Note for:: 12/22/16 Subjective:: Patient seems to be doing better with gradual improvement. Pt is denying any chest arm or neck discomfort. Patient denying any PND, orthopnea. Patient denied any sustained palpitations, dizziness, syncope, near syncope. Patient denying any fever chills. Patient denying any other significant discomfort. Patient is maintaining sinus rhythm. Patient noted to have bradycardia in sleep noted but has improved since yesterday. He was basically asymptomatic. Review of systems: Rest review of systems negative. Medications: Medications have been reviewed. On questioning patient does admit to having history of snoring and multiple nocturnal awakening. This was confirmed by patient's today Physical Exam Vital Signs: Temp Pulse Resp BP Pulse Ox 97.3 F 69 19 126/68 H 98 12/22/16 11:52 12/22/16 11:52 12/22/16 11:52 12/22/16 11:52 12/22/16 11:52 Intake & Output 12/21/16 12/22/16 12/23/16 06:59 06:59 06:59 Intake Total 2197 1489 Output Total 820 600 Balance 1377 889 Weight 88.4 kg 87 kg Exam: GENERAL: well-nourished and in no acute distress. Alert and oriented x3 HEAD: Atraumatic, normocephalic. Dermatitis rash noted all over his face. Seems like seborrheic dermatitis. EYES: Pupils equal round and reactive to light, extraocular movements intact, sclera anicteric, conjunctiva are normal. ENT: TMs normal, nares patent, oropharynx clear without exudates. Moist mucous membranes. No oral ulcerations or bleeding gums noted NECK: supple without lymphadenopathy. Trachea is central. No cervical or axillary lymphadenopathy noted. Carotids are 2+, JVD WNL LUNGS: Respiration seems nonlabored, no significant accessory muscle action noted. Breath sounds clear to auscultation bilaterally and equal. No wheezes rales or rhonchi. No significant dullness noted on percussion. CHEST: Palpation of the chest wall shows no significant chest wall tenderness or abnormalities. 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 ABDOMEN: Soft, no significant tenderness appreciated, normoactive bowel sounds. No guarding, no rebound. No rigidity noted . No masses appreciated. EXTREMITIES: Pedal pulses are 1-2+, no calf tenderness noted. No clubbing or cyanosis.1+ pedal edema noted NEUROLOGICAL: Focused neurological exam showed no significant neurologic deficit. Normal speech, findings of cerebral palsy affecting lower extremity more than upper extremity. Patient claims findings at baseline. PSYCH: Normal mood, normal affect. Judgment and insight within normal limits. SKIN: No significant ecchymosis, mild cellulitic rash noted on his back and also on both lower extremity. MUSCULOSKELETAL EXAM: No significant joint swelling noted. Findings of cerebral palsy with some deformity of both feet noted. Results Laboratory Results: 12/21/16 03:39 12/22/16 08:03 12/22/16 08:03 Sodium 140.7 Potassium 4.4 Chloride 103 Carbon Dioxide 29 Anion Gap 9 BUN 29 H Creatinine 0.74 Est GFR ( Amer) > 60 Est GFR (Non-Af Amer) > 60 Glucose 78 Calcium 8.5 12/16/16 12/16/16 12/17/16 17:00 22:40 04:24 Troponin I 0.019 0.014 0.015 NT-Pro-B Natriuret Pep 12/17/16 12/22/16 04:24 08:03 Troponin I NT-Pro-B Natriuret Pep 2380 H 188 Impressions: Tibia/Fibula X-Ray 12/13/16 20:47 IMPRESSION: No evidence for acute fracture dislocation involving the tibia or fibula. Other findings as noted above Lung Scan-VQ NM 12/16/16 12:25 IMPRESSION: NORMAL VENTILATION-PERFUSION LUNG SCAN. NEGATIVE FOR PULMONARY EMBOLI. Chest X-Ray 12/17/16 08:03 IMPRESSION: CARDIAC ENLARGEMENT. VASCULAR CONGESTION. Assessment & Plan - Diagnosis (1) Congestive heart failure Qualifiers: Congestive heart failure type: diastolic Congestive heart failure chronicity: acute Qualified Code(s): I50.31 - Acute diastolic (congestive ) heart failure Is this a current diagnosis for this admission?: Yes (2) Acute seborrheic dermatitis Is this a current diagnosis for this admission?: Yes (3) Cerebral palsy Qualifiers: Cerebral palsy type: unspecified type Qualified Code(s): G80.9 - Cerebral palsy, unspecified Is this a current diagnosis for this admission?: Yes (4) Lower extremity cellulitis Qualifiers: Laterality: unspecified laterality Qualified Code(s): L03.119 - Cellulitis of unspecified part of limb Is this a current diagnosis for this admission?: Yes (5) PAF (paroxysmal atrial fibrillation) Is this a current diagnosis for this admission?: Yes (6) Sleep disorder breathing Is this a current diagnosis for this admission?: Yes (7) Obesity Is this a current diagnosis for this admission?: Yes - Notes Notes: Congestive heart failure: Seems compensated. Continue baseline diuretic therapy. This is related to diastolic dysfunction, being precipitated by atrial fibrillation. Currently patient in sinus rhythm. Atrial fibrillation most likely precipitated by cellulitis and also sleep apnea syndrome. Patient encouraged to schedule a sleep study. Nocturnal bradycardia: Most likely related to underlying sleep apnea syndrome. Patient will benefit from a sleep study. This will be scheduled as an outpatient. Lower extremity cellulitis: This is improving. Paroxysmal atrial fibrillation: Recommend chronic anticoagulation at least for a month. We will decide length of anticoagulation in follow-up. Seborrheic dermatitis: Continue current management plans. Cerebral palsy: Currently stable. Obesity: Patient encouraged to lose weight. Sleep disordered breathing: This is suspect that based on patient's symptoms of snoring, daytime fatigue and somnolence. Patient also has difficulty falling asleep and staying asleep. Patient has obesity and oropharyngeal exams suggest high probability of underlying sleep apnea syndrome. Have discussed this with the patient. Discussed increased risk of cardiovascular event rate, cerebrovascular accident, cardiac arrhythmias, uncontrolled hypertension etc. as being associated with untreated sleep apnea. Discussed that we'll be happy to schedule this as an outpatient. Patient has been recommended weight loss, sleep hygiene. Today patient was seen prior to discharge. Patient's was in the room. Discussed adverse effect of untreated sleep apnea on the heart. - Time Time with patient: 15-25 minutes - CODE STATUS was discussed, patient remains full code. Surrogate decision-maker unchanged. Multiple medical problems were addressed.More than 50% of the time spent coordinating care, discussing management plans with involved caregivers. Management plans discussed with involved personnels. Medical decision making was of moderate complexity.
== END 2016-12-22 12:37 | disposition home or self-care (01) | DRG 602 ==
LOC: ER 20:34 → EH 23:45 → UNDOADMIN 23:54 → 4N 12-14 04:25 → 3N 12-16 10:58
PROVIDERS: ADMIT Internal Medicine; ATTEND Internal Medicine
PROC: 3E0234Z Introduction of Serum, Toxoid and Vaccine into Muscle, Percutaneous Approach (ICD-10-PCS; principal; 2016-12-14)
DX: L03.116 Cellulitis of left lower limb (principal); I50.31 Acute diastolic (congestive) heart failure; S80.812A Abrasion, left lower leg, initial encounter; G80.9 Cerebral palsy, unspecified; L21.8 Other seborrheic dermatitis; I48.0 Paroxysmal atrial fibrillation; L27.0 Generalized skin eruption due to drugs and medicaments taken internally; T36.8X5A Adverse effect of other systemic antibiotics, initial encounter; Y92.230 Patient room in hospital as the place of occurrence of the external cause; W01.0XXA Fall on same level from slipping, tripping and stumbling without subsequent striking against object, initial encounter; Y93.9 Activity, unspecified; Y92.9 Unspecified place or not applicable; Z23 Encounter for immunization
CPT/HCPCS: 36415; 71010; 78582; 80048; 80053; 80162; 80202; 81001; 82272; 82306; 82330; 82565; 82652; 83735; 83880; 84443; 84484; 85025; 85027; 87040; 90715; 93005; 93010; 93306; 99284; A9540; A9567; G8978-GP; G8979-GP; J1160; J1200; J1644; J1650; J1940; J2020; J2543; J2920; J3370; J3490; J7030; J7060; J7512; Q9969

== ENCOUNTER 2017-08-27 19:13 | Emergency (ER) | payer MEDICARE ==
--- NOTE | 2017-08-27 19:54 | ER Document Report ---
ED Medical Screen (RME) - General Chief Complaint: Dizziness Stated Complaint: NAUSEA AND DIZZINESS Time Seen by Provider: 08/27/17 19:49 Mode of Arrival: Wheelchair Information source: Patient TRAVEL OUTSIDE OF THE [place] 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, presents to the emergency room today complaining of dizziness and feeling "woozy" with a slight headache that started yesterday evening, the headache has since resolved but he continues to have dizziness and now has nausea and vomiting, denies any abdominal pain, no fevers - Related Data Allergies/Adverse Reactions: vancomycin Allergy (Intermediate, Verified 08/27/17 19:36) Exanthematic eruption Past Medical History - Social History Chew tobacco use (# tins/day): No Frequency of alcohol use: None Drug Abuse: None - Past Medical History Cardiac Medical History: Reports: Hx Atrial Fibrillation Renal/ Medical History: Denies: Hx Peritoneal Dialysis - Immunizations Immunizations up to date: No Hx Diphtheria, Pertussis, Tetanus Vaccination: Yes Physical Exam - Vital signs Vitals: Temp Pulse Resp BP Pulse Ox 97.8 F 61 20 130/82 H 94 08/27/17 19:35 08/27/17 19:35 08/27/17 19:35 08/27/17 19:35 08/27/17 19:35 Course - Vital Signs Vital signs: Temp Pulse Resp BP Pulse Ox 97.8 F 61 20 130/82 H 94 08/27/17 19:35 08/27/17 19:35 08/27/17 19:35 08/27/17 19:35 08/27/17 19:35
[2017-08-27 20:35] LABS: ABSOLUTE BASOPHILS # (AUTO) 0.1 10^3/uL (0.0-0.2); ABSOLUTE LYMPHOCYTES (AUTO) 1.3 10^3/uL (0.5-4.7); ABSOLUTE MONOCYTES (AUTO) 0.3 10^3/uL (0.1-1.4); ABSOLUTE NEUT (AUTO) 6.4 10^3/uL (1.7-8.2); BASOPHILS % (AUTO) 0.6 % (0-2); EOSINOPHILS % (AUTO) 0.5 % (0-6); HEMATOCRIT 47.1 % (37.9-51.0); HEMOGLOBIN 16.9 g/dL (13.5-17.0); HGB HCT DIFFERENCE 3.6; LYMPHOCYTES % (AUTO) 15.7 % (13-45); MEAN CORPUSCULAR HEMOGLOBIN 31.2 pg (27.0-33.4); MEAN CORPUSCULAR HGB CONC 35.9 g/dL (32.0-36.0); MEAN CORPUSCULAR VOLUME 87 fl (80-97); RED BLOOD COUNT 5.43 10^6/uL (4.35-5.55); RED CELL DISTRIBUTION WIDTH 12.8 % (11.5-14.0); SEGMENTED NEUTROPHILS % (AUTO) 79.2 % (42-78); WHITE BLOOD COUNT 8.1 10^3/uL (4.0-10.5)
--- NOTE | 2017-08-27 20:48 | RADIOLOGY REPORT (SQ) ---
EXAM DESCRIPTION: CT HEAD WITHOUT COMPLETED DATE/TIME: 08/27/2017 8:26 pm REASON FOR STUDY: dizziness, h/o tumor COMPARISON: None. TECHNIQUE: Axial images acquired through the brain without intravenous contrast. Images reviewed wi th bone, brain and subdural windows. Images stored on PACS. All CT scanners at this facility use dose modulation, iterative reconstruction, and/or weight based d osing when appropriate to reduce radiation dose to as low as reasonably achievable (ALARA). [facility]: Dose Right [facility]: CareDose [facility]: Dose Right [facility]: Teradose 4D [facility]: Smart [employer] RADIATION DOSE: Up-to-date CT equipment and radiation dose reduction techniques were employed. CTDIv ol: 64.6 mGy. DLP: 1292 mGy-cm. mGy. LIMITATIONS: None. FINDINGS: VENTRICLES: Normal size and contour. CEREBRUM: No masses. No hemorrhage. No midline shift. No evidence for acute infarction. Normal gra y/white matter differentiation. No areas of low density in the white matter. CEREBELLUM: No masses. No hemorrhage. No alteration of density. No evidence for acute infarction. EXTRAAXIAL SPACES: No fluid collections. No masses. ORBITS AND GLOBE: No intra- or extraconal masses. Normal contour of globe without masses. CALVARIUM: No fracture. PARANASAL SINUSES: No fluid or mucosal thickening. SOFT TISSUES: No mass or hematoma. OTHER: No other significant finding. IMPRESSION: No acute intracranial findings. EVIDENCE OF ACUTE STROKE: NO. COMMENT: Quality ID # [id number]: Final reports with documentation of one or more dose reduction techniques (e.g., Automated exposure control, adjustment of the mA and/or kV according to patient size, use of iterative reconstruction technique) TECHNICAL DOCUMENTATION: JOB ID: [id number]- All Rights Reserved
[2017-08-27 20:51] LABS: ALANINE AMINOTRANSFERASE 38 U/L (21-72); ALBUMIN 4.4 g/dL (3.5-5.0); ALKALINE PHOSPHATASE 100 U/L (38-126); ANION GAP 8 (5-19); ASPARTATE AMINO TRANSFERASE 24 U/L (17-59); BILIRUBIN,DIRECT 0.3 mg/dL (0.0-0.4); BILIRUBIN,TOTAL 1.3 mg/dL (0.2-1.3); BLOOD UREA NITROGEN 21 mg/dL (7-20); CALCIUM 9.1 mg/dL (8.4-10.2); CARBON DIOXIDE 26 mmol/L (22-30); CHLORIDE 108 mmol/L (98-107); CREATININE RESULT 0.64 mg/dL (0.52-1.25); GLUCOSE 106 mg/dL (75-110); SODIUM 141.8 mmol/L (137-145); TOTAL PROTEIN 7.2 g/dL (6.3-8.2)
[2017-08-27 20:54] LABS: APPEARANCE,URINE CLEAR; BILIRUBIN,URINE NEGATIVE (NEGATIVE); GLUCOSE, URINE NEGATIVE (NEGATIVE); KETONES,URINE TRACE mg/dL (NEGATIVE); LEUKOCYTE ESTERASE,URINE NEGATIVE (NEGATIVE); NITRITE,URINE NEGATIVE (NEGATIVE); PROTEIN,URINE NEGATIVE (NEGATIVE); URINE SPECIFIC GRAVITY 1.024; UROBILINOGEN,URINE NEGATIVE mg/dL (<2.0)
[2017-08-27 21:00] LABS: RBC,URINE NONE SEEN /HPF; WBC,URINE NONE SEEN /HPF
--- NOTE | 2017-08-27 21:16 | EKG REPORT ---
SEVERITY:- BORDERLINE ECG - SINUS RHYTHM BORDERLINE T ABNORMALITIES, LATERAL LEADS : Confirmed by: Jose Lee 27-Aug-2017 21:15:31
[2017-08-27] MEDS ORDERED: MECLIZINE HCL 25 MG TABLET PO ONE (21:21)
[2017-08-27] MEDS ORDERED: ONDANSETRON HCL INJ/PF 4 MG/2 ML SDV IV ONE (21:22)
[2017-08-27] MEDS ORDERED: NORMAL SALINE 1000 ML 1,000 ML IV ONE (21:22)
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
[2017-08-28 00:36] VITALS: BP 133/86
== END 2017-08-28 00:25 | disposition home or self-care (01) ==
LOC: ER 19:13
DX: R42 Dizziness and giddiness (principal); R11.2 Nausea with vomiting, unspecified
CPT/HCPCS: 93005; 99285; 96361; 96374; 36415; 85025; 80053; 81001; 70450; 93010; A9270; J2405; J7030

== ENCOUNTER 2020-02-26 22:41 | Inpatient (IN) | payer MEDICARE ==
[2020-02-26] MEDS ORDERED: NORMAL SALINE 1000 ML 1,000 ML IV ONE (23:54)
[2020-02-26] MEDS ORDERED: PIPERACILLIN/TAZOBACTAM 3.375 GM VIAL IV ONE (23:55)
[2020-02-26] MEDS ORDERED: LINEZOLID 600 MG/300 ML RTUPB IV ONE (23:56)
[2020-02-26] MEDS ORDERED: ONDANSETRON HCL INJ/PF 4 MG/2 ML SDV IV ONE (23:58)
[2020-02-26] MEDS ORDERED: MORPHINE SULFATE 10 MG/ML INJ IV ONE (23:58)
--- NOTE | 2020-02-27 00:47 | ER Document Report ---
ED General - General TRAVEL OUTSIDE OF THE [place] 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 Denies trauma. Subjective fever. No chills. Mild nausea. No vomiting. History of allergy to vancomycin. (JAMEY SALES) - Related Data Allergies/Adverse Reactions: vancomycin Allergy (Intermediate, Verified 08/27/17 19:36) Exanthematic eruption Past Medical History - General Information source: Patient, [facility] Records - Social History Smoking Status: Never Smoker Chew tobacco use (# tins/day): No Frequency of alcohol use: None Drug Abuse: None Family History: Reviewed & Not Pertinent Patient has suicidal ideation: No Patient has homicidal ideation: No - Past Medical History Cardiac Medical History: Reports: Hx Atrial Fibrillation, Hx Hypercholesterolemia, Hx Hypertension Renal/ Medical History: Reports: Hx Benign Prostatic Hyperplasia. 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 - Immunizations Immunizations up to date: No Hx Diphtheria, Pertussis, Tetanus Vaccination: Yes <JAMEY SALES - Last Filed: 02/27/20 00:42> Review of Systems - Review of Systems Skin: Other - Chronic atopic dermatitis <JAMEY SALES - Last Filed: 02/27/20 00:42> - Review of Systems Notes: Constitutional: As per HPI. HENT: Negative for sore throat. Eyes: Negative for visual changes. Cardiovascular: Negative for chest pain. Respiratory: Negative for shortness of breath. Gastrointestinal: As per HPI. Genitourinary: Negative for dysuria. Musculoskeletal: Negative for back pain. Skin: As per HPI. Neurological: Negative for headaches, weakness or numbness. 10 point ROS negative except as marked above and in HPI. (JAMEY SALES) Physical Exam <JAMEY SALES - Last Filed: 02/27/20 00:42> - Vital signs Vitals: Resp Pulse Ox 29 H 97 02/26/20 22:56 02/26/20 22:56 - Notes Notes: GENERAL: Well-developed well-nourished appearing uncomfortable. SKIN: Generalized dry scaling of the skin. HEAD: Normocephalic atraumatic. EYES: PERRLA. EOMI. Conjunctivae and sclerae clear. EARS: CANALS AND TMS CLEAR. NOSE: CLEAR. MOUTH: Moist mucosa. Good dentition. No stridor or edema. No drooling. NECK: Supple. No masses or thyromegaly. No adenopathy. Carotids 2+ without bruits. No JVD. BACK: Symmetrical without tenderness. CHEST: Respirations unlabored. Breath sounds clear and symmetrical. HEART: Tachycardic regular rhythm. No murmur gallop or rub. ABDOMEN: Soft mildly obese nontender without masses, organomegaly or rebound. Bowel sounds normally active. No bruits. GENITALIA: Deferred. EXTREMITIES: Patient has muscular atrophy of both lower legs. On the right he has redness warmth and some weeping cellulitis present. Patient has mildly clubbed feet bilaterally cap refill less than 1.5 seconds. Dorsalis pedis and posterior tibial pulses 3+ and symmetrical. NEUROLOGICAL: GCS 15. Alert and oriented x3. Fluent speech. Cranial nerves II through XII intact. Sensorimotor and cerebellar normal. Normal tone. PSYCHIATRIC: Appropriate affect. (JAMEY SALES) Course - Laboratory Result Diagrams: 02/27/20 01:15 02/27/20 01:15 <GINI SLOAN - Last Filed: 02/27/20 02:38> - Re-evaluation Re-evalutation: 02/27/20 02:25 I assumed care of this patient from Dr. Sales, apparently felt that the patient needed to be admitted to the hospital for cellulitis of the legs bilate rally. Patient found to have a elevated WBC at 19,900, elevated lactate at 2.2. Patient has received IV antibiotics and fluids. Will discuss with hospitalist regarding hospitalization for continued care. 02/27/20 02:26 I discussed the patient with the hospitalist, , he will admit the kendy vega to the hospital for further IV antibiotics and close monitoring blood cultures and WBC count. (GINI SLOAN) - Vital Signs Vital signs: Temp Pulse Resp BP Pulse Ox 98.4 F 29 H 151/98 H 96 02/26/20 23:14 02/26/20 23:25 02/26/20 23:25 02/26/20 23:25 - Laboratory Laboratory results interpreted by me: 02/27/20 02/27/20 02/27/20 00:56 01:15 01:15 WBC 19.9 H Plt Count 140 L Seg Neuts % (Manual) 87 H Lymphocytes % (Manual) 3 L Abs Neuts (Manual) 18.3 H Sodium 134.5 L Potassium 5.2 H BUN 24 H POC Glucose 115 H Lactic Acid Total Bilirubin 1.4 H 02/27/20 01:15 WBC Plt Count Seg Neuts % (Manual) Lymphocytes % (Manual) Abs Neuts (Manual) Sodium Potassium BUN POC Glucose Lactic Acid 2.2 H Total Bilirubin Discharge <JAMEY SALES - Last Filed: 02/27/20 00:42> - Discharge Admitting Provider: Connor (Hospitalist) Unit Admitted: Medical Floor <GINI SLOAN - Last Filed: 02/27/20 02:38> - Discharge Clinical Impression: Cellulitis of right leg, Elevated lactic acid level, Seborrheic dermatitis Leukocytosis Qualifiers: Leukocytosis type: bandemia Qualified Code(s): D72.825 - Bandemia Cerebral palsy Qualifiers: Cerebral palsy type: unspecified type Qualified Code(s): G80.9 - Cerebral palsy, unspecified Condition: Good Disposition: ADMITTED INPATIENT Referrals: MARTÍNEZ CRAFT MD [Primary Care Provider] - Follow up as needed
--- NOTE | 2020-02-27 00:54 | RADIOLOGY REPORT (SQ) ---
EXAM DESCRIPTION: Multiple views of the right tibia and fibula CLINICAL HISTORY: 59 years Male, cellulitis COMPARISON: None. FINDINGS: Soft tissues are prominent. Bone mineralization is diminished. There is bowing of the fibula towards the tibia which appears chronic. No acute fracture is seen. There is mild joint space narrowing at the knee. No acute fracture. No cortical disruption or periostitis. No air is seen in the soft tissues. IMPRESSION: No definitive evidence of osteomyelitis. No focal air collections in the soft tissues. Diffuse soft tissue edema consistent with cellulitis.
--- NOTE | 2020-02-27 01:01 | RADIOLOGY REPORT (SQ) ---
EXAM DESCRIPTION: [facility]: XR CHEST 2 VIEWS Views: 2 CLINICAL HISTORY: 59 years Male; tachycardia; COMPARISON: 12/17/2016 FINDINGS: Lungs: Lungs are clear, with no focal infiltrate, pneumothorax, or pleural effusion. Mediastinum: Mediastinum is within normal limits for this positioning. Heart size within normal limits. Bones: There is a mild levocurvature of the lower thoracic spine. No acute bone findings. IMPRESSION: 1. No acute cardiothoracic abnormality.
[2020-02-27] MEDS ORDERED: NORMAL SALINE 1000 ML 1,000 ML IV ONE (01:30)
[2020-02-27 01:38] LABS: HEMATOCRIT 45.7 % (37.9-51.0); HEMOGLOBIN 16.1 g/dL (13.5-17.0); MEAN CORPUSCULAR HEMOGLOBIN 30.9 pg (27.0-33.4); MEAN CORPUSCULAR HGB CONC 35.4 g/dL (32.0-36.0); MEAN CORPUSCULAR VOLUME 87 fl (80-97); PLATELET COUNT 140 10^3/uL (150-450); RED BLOOD COUNT 5.23 10^6/uL (4.35-5.55); RED CELL DISTRIBUTION WIDTH 13.2 % (11.5-14.0); WHITE BLOOD COUNT 19.9 10^3/uL (4.0-10.5)
[2020-02-27 01:54] LABS: ALBUMIN 4.2 g/dL (3.5-5.0); ALKALINE PHOSPHATASE 75 U/L (38-126); ANION GAP 9 (5-19); ASPARTATE AMINO TRANSFERASE 53 U/L (17-59); BILIRUBIN,TOTAL 1.4 mg/dL (0.2-1.3); BLOOD UREA NITROGEN 24 mg/dL (7-20); CALCIUM 9.1 mg/dL (8.4-10.2); CARBON DIOXIDE 24 mmol/L (22-30); CHLORIDE 102 mmol/L (98-107); GLUCOSE 109 mg/dL (75-110); POTASSIUM 5.2 mmol/L (3.6-5.0); TOTAL PROTEIN 7.1 g/dL (6.3-8.2)
[2020-02-27 02:05] LABS: ABSOLUTE LYMPHOCYTES# (MANUAL) 0.8 10^3/uL (0.5-4.7); ABSOLUTE MONOCYTES # (MANUAL) 0.8 10^3/uL (0.1-1.4); BAND NEUTROPHILS % (MANUAL) 5 % (3-5); BASOPHILS % (MANUAL) 0 % (0-2); EOSINOPHILS % (MANUAL) 0 % (0-6); LYMPHOCYTES % (MANUAL) 3 % (13-45); MONOCYTES % (MANUAL) 4 % (3-13); SEGMENTED NEUTROPHILS % (MAN) 87 % (42-78); TOTAL CELLS COUNTED 100
[2020-02-27 02:06] LABS: PLATELET COMMENT DECREASED
[2020-02-27 02:07] LABS: TEAR DROP CELLS SLIGHT
[2020-02-27] MEDS ORDERED: LINEZOLID 600 MG/300 ML RTUPB IV ONE (02:13)
[2020-02-27] MEDS ORDERED: MAG HYDROX/AL HYDROX/SIMETH SUSP 30 ML UDCUP PO PRN (04:15)
[2020-02-27] MEDS ORDERED: PROMETHAZINE HCL INJ 25 MG/1 ML VIAL IV PRN (04:15)
[2020-02-27] MEDS ORDERED: MAGNESIUM HYDROXIDE SUSP 30 ML UDCUP PO PRN (04:15)
[2020-02-27] MEDS ORDERED: LORAZEPAM INJ 2 MG/1 ML VIAL IV PRN (04:18)
[2020-02-27] MEDS ORDERED: MORPHINE SULFATE 10 MG/ML INJ IV PRN ×3 (04:18)
[2020-02-27] MEDS ORDERED: ACETAMINOPHEN 325 MG TABLET PO PRN (04:18)
[2020-02-27] MEDS ORDERED: LINEZOLID 600 MG/300 ML RTUPB IV SCH (04:30)
[2020-02-27] MEDS ORDERED: LEVOFLOXACIN 500 MG/D5W RTU 500 MG/100 ML RTUPB IV ONE (05:00)
--- NOTE | 2020-02-27 09:37 | EKG REPORT ---
SEVERITY:- BORDERLINE ECG - SINUS TACHYCARDIA BORDERLINE T ABNORMALITIES, INFERIOR LEADS : Confirmed by: Jose Lee 27-Feb-2020 09:37:05
--- NOTE | 2020-02-27 10:42 | PDOC H&P ---
History of Present Illness Admission Date/PCP: 02/27/20 02:40 MARTÍNEZ CRAFT MD Patient complains of: Swelling and pain right lower leg History of Present Illness: SUSANNAH SLOAN is a 59 year old male who presents the emergency room with a 3-day history of painful swelling in the right lower leg. He admits a gradual onset and worsening of the constantly present redness and swelling with ever increasing pain, becoming severe today. The pain has been accompanied by redness and associated with increased warmth of the skin as well as the previously mentioned swelling. The pain is a throbbing aching sensation, without radiation. He denies other associated or accompanying signs and sympt oms. He admits numerous prior similar episodes related to cellulitis in his lower extremities. 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 He has not identified any additional aggravating or ameliorating factors for his painful swelling of the right lower leg. In the emergency room he was found to have an elevated white count 19,900 with a lactic acid of 2.2. He was given IV antibiotics initially in the ER and was subsequently admitted for further evaluation and treatment. Past Medical History Cardiac Medical History: Reports: Atrial Fibrillation, Hyperlipidema, Hypertension Pulmonary Medical History: Denies: Asthma, Chronic Obstructive Pulmonary Disease (COPD) EENT Medical History: Denies: Cataracts, Ears Neurological Medical History: Reports: Other - Cerebral palsy Denies: Hemorrhagic CVA, Ischemic CVA Endocrine Medical History: Denies: Diabetes Mellitus Type 1, Diabetes Mellitus Type 2, Hyperthyroidism, Hypothyroidism Renal/ Medical History: Denies: Chronic Kidney Disease, Nephrolithiasis Malignancy Medical History: Reports: None GI Medical History: Denies: Cirrhosis, Crohn's Disease, Hepatitis, Ulcerative Colitis Musculoskeltal Medical History: Denies: Arthritis, Gout Skin Medical History: Denies: Eczema, Psoriasis Psychiatric Medical History: Denies: Alcohol Dependency, Substance Abuse, Tobacco Dependency Traumatic Medical History: Reports: None Hematology: Denies: Anemia, Bleeding Tendencies Infectious Medical History: Reports: None Past Surgical History Past Surgical History: Reports: Other - 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 Social History Information Source: Patient Lives with: Spouse/Significant other Smoking Status: Never Smoker Electronic Cigarette use?: No Frequency of Alcohol Use: None Hx Recreational Drug Use: No Drugs: None Hx Prescription Drug Abuse: No - Advance Directive Resuscitation Status: Full Code Surrogate healthcare decision maker:: Kallie Sloan Family History Family History: Hypertension. denies: CAD, DM, Malignancy Parental Family History Reviewed: Yes Children Family History Reviewed: No Sibling(s) Family History Reviewed.: Yes Medication/Allergy Home Medications: Tamsulosin HCl [Flomax 0.4 mg Cap.sr] 0.4 mg PO DAILY 12/14/16 Acetaminophen [Tylenol 325 mg Tablet] 650 mg PO Q4HP PRN tablet 12/22/16 Ascorbic Acid [Vitamin C 500 mg Tablet] 1,000 mg PO BID tablet 12/22/16 Calcium Carbonate [Tums Chewable 500 mg Tab.chew] 1,000 mg PO BID tab.chew 12/22/16 Cholecalciferol (Vitamin D3) [Vitamin D3 1000 Unit Tablet] 1,000 unit PO DAILY #30 tablet 12/22/16 Clindamycin HCl [Cleocin 300 mg Capsule] 600 mg PO Q6 #40 cap 12/22/16 Diltiazem HCl 120 mg PO BID #60 tablet 12/22/16 Furosemide [Lasix 20 mg Tablet] 20 mg PO DAILY #30 tablet 12/22/16 Ketoconazole [Nizoral 2% Shampoo 120 ml Bottle] 1 applic TP DAILY #1 bottle 12/22/16 Lactobacillus Acidophilus [Acidophilus Probiotic] 1 mg PO BIDACBL #60 capsule 12/22/16 Potassium Chloride [K-Tab] 10 meq PO DAILY #30 tablet.sa 12/22/16 Rivaroxaban [Xarelto] 20 mg PO DAILY #30 tablet 12/22/16 Meclizine HCl 25 mg PO QIDP PRN #30 tab.chew 08/27/17 Ondansetron [Zofran Odt 4 mg Tablet] 1 - 2 tab PO Q4H PRN #10 tab.rapdis 08/27/17 Allergies/Adverse Reactions: vancomycin Allergy (Intermediate, Verified 08/27/17 19:36) Exanthematic eruption Review of Systems Constitutional: ABSENT: chills, fever(s) Eyes: ABSENT: visual disturbances, other - Eye pain Ears: ABSENT: hearing changes, other - Ear pain Nose, Mouth, and Throat: ABSENT: headache(s), sore throat Cardiovascular: ABSENT: chest pain, palpitations Respiratory: ABSENT: cough, dyspnea Gastrointestinal: ABSENT: abdominal pain, constipation, diarrhea, nausea, vomiting Genitourinary: ABSENT: dysuria, hematuria Musculoskeletal: ABSENT: back pain, joint swelling Integumentary: ABSENT: pruritus, rash Neurological: ABSENT: confusion, convulsions, focal weakness, memory loss, syncope Psychiatric: ABSENT: anxiety, depression Endocrine: ABSENT: cold intolerance, heat intolerance, polydipsia, polyphagia, polyuria Hematologic/Lymphatic: ABSENT: easy bleeding, easy bruising Physical Exam Vital Signs: Temp Pulse Resp BP Pulse Ox 98.4 F 29 H 151/98 H 96 02/26/20 23:14 02/26/20 23:25 02/26/20 23:25 02/26/20 23:25 Intake & Output 02/25/20 02/26/20 02/27/20 23:59 23:59 23:59 Intake Total 1300 Balance 1300 General appearance: PRESENT: no acute distress, cooperative Head exam: PRESENT: atraumatic, normocephalic Eye exam: ABSENT: conjunctival injection, scleral icterus Ear exam: PRESENT: normal external ear exam. ABSENT: bleeding, drainage Mouth exam: PRESENT: dry mucosa, neck supple Neck exam: ABSENT: thyromegaly, tracheal deviation Respiratory exam: PRESENT: clear to auscultation stacie, symmetrical, unlabored Cardiovascular exam: PRESENT: RRR. ABSENT: clicks, gallop, rubs Pulses: PRESENT: normal carotid pulses, normal radial pulses Vascular exam: PRESENT: normal capillary refill. ABSENT: pallor GI/Abdominal exam: PRESENT: normal bowel sounds, soft Rectal exam: PRESENT: deferred Extremities exam: ABSENT: joint swelling, pedal edema Musculoskeletal exam: ABSENT: ambulatory, other - Marked muscle atrophy of the bilateral lower extremities Neurological exam: PRESENT: alert, oriented to person, oriented to place, oriented to time, oriented to situation, CN II-XII grossly intact Psychiatric exam: PRESENT: appropriate affect, normal mood Skin exam: PRESENT: erythema - Erythema and edema with local tenderness of the right lower extremity. ABSENT: jaundice, rash, urticaria Results Laboratory Results: 02/27/20 01:15 02/27/20 01:15 02/27/20 02/27/20 02/27/20 01:15 01:15 01:15 WBC 19.9 H RBC 5.23 Hgb 16.1 Hct 45.7 MCV 87 MCH 30.9 MCHC 35.4 RDW 13.2 Plt Count 140 L Seg Neutrophils % Not Reportable Sodium 134.5 L Potassium 5.2 H Chloride 102 Carbon Dioxide 24 Anion Gap 9 BUN 24 H Creatinine 0.73 Est GFR ( Amer) > 60 Glucose 109 Lactic Acid 2.2 H Calcium 9.1 Total Bilirubin 1.4 H AST 53 Alkaline Phosphatase 75 Total Protein 7.1 Albumin 4.2 Impressions: Tibia/Fibula X-Ray 02/26/20 23:53 IMPRESSION: No definitive evidence of osteomyelitis. No focal air collections in the soft tissues. Diffuse soft tissue edema consistent with cellulitis. Chest X-Ray 02/26/20 23:54 IMPRESSION: 1. No acute cardiothoracic abnormality.
[2020-02-27] MEDS: FAMOTIDINE INJ/PF 20 MG/2 ML SDV IV SCH ×2 (12:08→21:32)
[2020-02-27] MEDS: LINEZOLID 600 MG/300 ML RTUPB IV SCH ×2 (12:08→21:31)
[2020-02-27] MEDS: DOCUSATE SODIUM 100 MG CAPSULE PO SCH ×2 (12:08→17:42)
[2020-02-27] MEDS: HEPARIN SOD (PORCINE) 5,000 UNIT/ML 1 ML VIAL SUBCUT SCH ×2 (12:09→21:32)
[2020-02-27] MEDS: TAMSULOSIN HCL 0.4 MG CAP.SR.24H PO SCH (22:08)
[2020-02-28 05:08] LABS: HEMATOCRIT 39.1 % (37.9-51.0); MEAN CORPUSCULAR HEMOGLOBIN 31.3 pg (27.0-33.4); MEAN CORPUSCULAR HGB CONC 35.8 g/dL (32.0-36.0); MEAN CORPUSCULAR VOLUME 88 fl (80-97); PLATELET COUNT 100 10^3/uL (150-450); RED BLOOD COUNT 4.47 10^6/uL (4.35-5.55); RED CELL DISTRIBUTION WIDTH 13.4 % (11.5-14.0); WHITE BLOOD COUNT 11.9 10^3/uL (4.0-10.5)
[2020-02-28 05:21] LABS: ANION GAP 6 (5-19); BLOOD UREA NITROGEN 16 mg/dL (7-20); CALCIUM 8.3 mg/dL (8.4-10.2); CARBON DIOXIDE 23 mmol/L (22-30); CHLORIDE 103 mmol/L (98-107); GLUCOSE 99 mg/dL (75-110); POTASSIUM 4.1 mmol/L (3.6-5.0)
[2020-02-28] MEDS: HEPARIN SOD (PORCINE) 5,000 UNIT/ML 1 ML VIAL SUBCUT SCH ×3 (06:12→21:08)
[2020-02-28] MEDS ORDERED: (PENDING PHARMACY ID) (Diltiazem Hcl [Diltiazem Hcl] 120 MG) PO SCH (08:00)
[2020-02-28] MEDS: DOCUSATE SODIUM 100 MG CAPSULE PO SCH ×2 (09:02→17:12)
[2020-02-28] MEDS: SPIRONOLACTONE 25 MG TABLET PO SCH (09:02)
[2020-02-28] MEDS: FAMOTIDINE INJ/PF 20 MG/2 ML SDV IV SCH (09:02)
[2020-02-28] MEDS: DILTIAZEM HCL 120 MG CAP.SR.24H PO SCH (09:02)
[2020-02-28] MEDS: FUROSEMIDE 20 MG TABLET PO SCH (09:03)
[2020-02-28] MEDS: LINEZOLID 600 MG/300 ML RTUPB IV SCH ×2 (09:03→21:13)
[2020-02-28] MEDS: LEVOFLOXACIN 500 MG/D5W RTU 500 MG/100 ML RTUPB IV SCH (11:18)
--- NOTE | 2020-02-28 14:13 | PDOC PROGRESS REPORT ---
Subjective Progress Note for:: 02/28/20 Subjective:: Patient feels better today. He feels the swelling and redness is down Reason For Visit: CELLULITIS RIGHT LOWER EXTREMITY Physical Exam Vital Signs: Temp Pulse Resp BP Pulse Ox 97.8 F 113 H 20 99/66 L 97 02/28/20 12:21 02/28/20 12:21 02/28/20 12:21 02/28/20 12:21 02/28/20 12:21 Intake & Output 02/27/20 02/28/20 02/29/20 06:59 06:59 06:59 Intake Total 2400 1196 Output Total 775 Balance 2400 421 Weight 99.9 kg 99.9 kg General appearance: PRESENT: no acute distress, obese Head exam: PRESENT: atraumatic, normocephalic Eye exam: PRESENT: conjunctiva pink, EOMI, PERRLA. ABSENT: scleral icterus Ear exam: PRESENT: normal external ear exam Mouth exam: PRESENT: tongue midline Neck exam: ABSENT: carotid bruit, JVD, lymphadenopathy, thyromegaly Respiratory exam: PRESENT: clear to auscultation stacie. ABSENT: rales, rhonchi, wheezes Cardiovascular exam: PRESENT: RRR, +S1, +S2. ABSENT: diastolic murmur, rubs, systolic murmur Pulses: PRESENT: normal dorsalis pedis pul Vascular exam: PRESENT: normal capillary refill GI/Abdominal exam: PRESENT: normal bowel sounds, soft. ABSENT: distended, guarding, mass, organolmegaly, rebound, tenderness Rectal exam: PRESENT: deferred Extremities exam: PRESENT: other. ABSENT: calf tenderness, clubbing, pedal edema Neurological exam: PRESENT: alert, awake, oriented to person, oriented to place, oriented to time, oriented to situation, CN II-XII grossly intact. ABSENT: motor sensory deficit Psychiatric exam: PRESENT: appropriate affect, normal mood. ABSENT: homicidal ideation, suicidal ideation Skin exam: PRESENT: dry, erythema, rash, warm, other - Swelling, erythema improved RLE, dry scaly skin, no open wound. ABSENT: cyanosis Results Laboratory Results: 02/28/20 04:31 02/28/20 04:31 02/28/20 02/28/20 04:31 04:31 WBC 11.9 H RBC 4.47 Hgb 14.0 D Hct 39.1 MCV 88 MCH 31.3 MCHC 35.8 RDW 13.4 Plt Count 100 L Sodium 132.4 L Potassium 4.1 Chloride 103 Carbon Dioxide 23 Anion Gap 6 BUN 16 Creatinine 0.84 Est GFR ( Amer) > 60 Glucose 99 Calcium 8.3 L Magnesium 2.0 Impressions: Tibia/Fibula X-Ray 02/26/20 23:53 IMPRESSION: No definitive evidence of osteomyelitis. No focal air collections in the soft tissues. Diffuse soft tissue edema consistent with cellulitis. Chest X-Ray 02/26/20 23:54 IMPRESSION: 1. No acute cardiothoracic abnormality. Assessment and Plan - Diagnosis (1) Cellulitis of right leg Is this a current diagnosis for this admission?: Yes Plan: Patient was placed on IV antibiotics and this seems to be effective. His white count is down and the infection does look to be improved. I will suggest a few more days of IV antibiotics prior to discharge (2) Cerebral palsy Qualifiers: Cerebral palsy type: unspecified type Qualified Code(s): G80.9 - Cerebral p alsy, unspecified Is this a current diagnosis for this admission?: Yes (3) Seborrheic dermatitis Is this a current diagnosis for this admission?: Yes Plan: Chronic, prn Steroid cream (4) Obesity Qualifiers: Body mass index: BMI 36.0-36.9 Is this a current diagnosis for this admission?: Yes - Inpatient Certification Based on my medical assessment, after consideration of the patient's comorbidities, presenting symptoms, or acuity I expect that the services needed warrant INPATIENT care.: Yes Medical Necessity: Need for IV Antibiotics
[2020-02-28] MEDS: FAMOTIDINE 20 MG TABLET PO SCH (21:13)
[2020-02-28] MEDS: TAMSULOSIN HCL 0.4 MG CAP.SR.24H PO SCH (21:13)
[2020-02-29 05:21] LABS: HEMATOCRIT 39.5 % (37.9-51.0); HEMOGLOBIN 14.2 g/dL (13.5-17.0); MEAN CORPUSCULAR HEMOGLOBIN 31.1 pg (27.0-33.4); MEAN CORPUSCULAR HGB CONC 35.9 g/dL (32.0-36.0); MEAN CORPUSCULAR VOLUME 87 fl (80-97); PLATELET COUNT 113 10^3/uL (150-450); RED BLOOD COUNT 4.54 10^6/uL (4.35-5.55); RED CELL DISTRIBUTION WIDTH 13.2 % (11.5-14.0); WHITE BLOOD COUNT 9.6 10^3/uL (4.0-10.5)
[2020-02-29] MEDS: HEPARIN SOD (PORCINE) 5,000 UNIT/ML 1 ML VIAL SUBCUT SCH ×3 (05:48→22:20)
[2020-02-29] MEDS: SPIRONOLACTONE 25 MG TABLET PO SCH (09:21)
[2020-02-29] MEDS: DOCUSATE SODIUM 100 MG CAPSULE PO SCH ×2 (09:21→17:23)
[2020-02-29] MEDS: FUROSEMIDE 20 MG TABLET PO SCH (09:21)
[2020-02-29] MEDS: DILTIAZEM HCL 120 MG CAP.SR.24H PO SCH (09:21)
[2020-02-29] MEDS: LEVOFLOXACIN 500 MG/D5W RTU 500 MG/100 ML RTUPB IV SCH (09:21)
[2020-02-29] MEDS: FAMOTIDINE 20 MG TABLET PO SCH ×2 (09:21→22:13)
[2020-02-29] MEDS: LINEZOLID 600 MG/300 ML RTUPB IV SCH ×2 (11:20→22:13)
--- NOTE | 2020-02-29 11:56 | PDOC PROGRESS REPORT ---
Subjective Progress Note for:: 02/29/20 Subjective:: Patient feels better today. He feels the swelling and redness is improving Reason For Visit: CELLULITIS RIGHT LOWER EXTREMITY Physical Exam Vital Signs: Temp Pulse Resp BP Pulse Ox 97.9 F 90 18 116/69 95 02/29/20 08:00 02/29/20 08:00 02/29/20 08:00 02/29/20 08:00 02/29/20 08:00 Intake & Output 02/28/20 02/29/20 03/01/20 06:59 06:59 06:59 Intake Total 1196 1176 Output Total 775 1999 Balance 421 -824 Weight 99.9 kg 99.9 kg General appearance: PRESENT: no acute distress, obese Head exam: PRESENT: normocephalic Eye exam: PRESENT: conjunctiva pink, EOMI. ABSENT: scleral icterus Ear exam: PRESENT: normal external ear exam Mouth exam: PRESENT: tongue midline Neck exam: ABSENT: carotid bruit, JVD, lymphadenopathy, thyromegaly Respiratory exam: PRESENT: clear to auscultation stacie, unlabored. ABSENT: rales, rhonchi, wheezes Cardiovascular exam: PRESENT: RRR, +S1, +S2. ABSENT: diastolic murmur, rubs, systolic murmur Pulses: PRESENT: normal dorsalis pedis pul Vascular exam: PRESENT: normal capillary refill GI/Abdominal exam: PRESENT: normal bowel sounds, soft. ABSENT: distended, guarding, mass, organolmegaly, rebound, tenderness Rectal exam: PRESENT: deferred Extremities exam: PRESENT: full ROM, other - erythema, swelling dry scaly patches but appears to be improving. ABSENT: calf tenderness, clubbing, pedal edema Musculoskeletal exam: PRESENT: deformity - Both legs Neurological exam: PRESENT: alert, awake, oriented to person, oriented to place, oriented to time, oriented to situation. ABSENT: motor sensory deficit Psychiatric exam: PRESENT: appropriate affect, normal mood. ABSENT: homicidal ideation, suicidal ideation Skin exam: PRESENT: dry, intact, warm. ABSENT: cyanosis, rash Results Laboratory Results: 02/29/20 05:04 02/28/20 04:31 02/29/20 05:04 WBC 9.6 RBC 4.54 Hgb 14.2 Hct 39.5 MCV 87 MCH 31.1 MCHC 35.9 RDW 13.2 Plt Count 113 L Impressions: Tibia/Fibula X-Ray 02/26/20 23:53 IMPRESSION: No definitive evidence of osteomyelitis. No focal air collections in the soft tissues. Diffuse soft tissue edema consistent with cellulitis. Chest X-Ray 02/26/20 23:54 IMPRESSION: 1. No acute cardiothoracic abnormality. Assessment and Plan - Diagnosis (1) Cellulitis of right leg Is this a current diagnosis for this admission?: Yes Plan: Patient was placed on IV antibiotics and this seems to be effective. His white count is down and the infection does look to be improved. I will suggest a few more days of IV antibiotics prior to discharge 02/28 Improving cellulitis, continue same (2) Cerebral palsy Qualifiers: Cerebral palsy type: unspecified type Qualified Code(s): G80.9 - Cerebral palsy, unspecified Is this a current diagnosis for this admission?: Yes (3) Seborrheic dermatitis Is this a current diagnosis for this admission?: Yes (4) Obesity Qualifiers: Body mass index: BMI 36.0-36.9 Is this a current diagnosis for this admission?: Yes
[2020-02-29] MEDS: TAMSULOSIN HCL 0.4 MG CAP.SR.24H PO SCH (22:13)
[2020-03-01 05:20] LABS: HEMATOCRIT 40.5 % (37.9-51.0); HEMOGLOBIN 14.3 g/dL (13.5-17.0); MEAN CORPUSCULAR HEMOGLOBIN 30.8 pg (27.0-33.4); MEAN CORPUSCULAR HGB CONC 35.3 g/dL (32.0-36.0); MEAN CORPUSCULAR VOLUME 87 fl (80-97); PLATELET COUNT 142 10^3/uL (150-450); RED BLOOD COUNT 4.65 10^6/uL (4.35-5.55); RED CELL DISTRIBUTION WIDTH 13.3 % (11.5-14.0); WHITE BLOOD COUNT 8.7 10^3/uL (4.0-10.5)
[2020-03-01] MEDS: HEPARIN SOD (PORCINE) 5,000 UNIT/ML 1 ML VIAL SUBCUT SCH ×3 (05:37→21:02)
[2020-03-01] MEDS: SPIRONOLACTONE 25 MG TABLET PO SCH (10:04)
[2020-03-01] MEDS: DILTIAZEM HCL 120 MG CAP.SR.24H PO SCH (10:04)
[2020-03-01] MEDS: FAMOTIDINE 20 MG TABLET PO SCH ×2 (10:05→21:08)
[2020-03-01] MEDS: DOCUSATE SODIUM 100 MG CAPSULE PO SCH ×2 (10:05→17:22)
[2020-03-01] MEDS: FUROSEMIDE 20 MG TABLET PO SCH (10:05)
[2020-03-01] MEDS: LEVOFLOXACIN 500 MG/D5W RTU 500 MG/100 ML RTUPB IV SCH (10:06)
[2020-03-01] MEDS: LINEZOLID 600 MG/300 ML RTUPB IV SCH (11:18)
--- NOTE | 2020-03-01 11:50 | PDOC PROGRESS REPORT ---
Subjective Progress Note for:: 03/01/20 Subjective:: Patient continues to improve He feels the swelling and redness is improving Reason For Visit: CELLULITIS RIGHT LOWER EXTREMITY Physical Exam Vital Signs: Temp Pulse Resp BP Pulse Ox 98.9 F 61 18 118/95 H 96 03/01/20 08:00 03/01/20 08:00 03/01/20 08:00 03/01/20 08:00 03/01/20 08:00 Intake & Output 02/29/20 03/01/20 03/02/20 06:59 06:59 06:59 Intake Total 1176 1380 Output Total 1999 700 Balance -824 680 Weight 99.9 kg 99.9 kg General appearance: PRESENT: no acute distress, obese Head exam: PRESENT: atraumatic Respiratory exam: PRESENT: clear to auscultation stacie, rhonchi, unlabored Cardiovascular exam: PRESENT: RRR, +S1, +S2 Rectal exam: PRESENT: deferred Extremities exam: PRESENT: other - swelling and erythema RLE, thigh anteriorly above the knee all resolving with less erythema and pain Neurological exam: PRESENT: alert, awake, oriented to person, oriented to place, oriented to time, oriented to situation. ABSENT: motor sensory deficit Skin exam: PRESENT: dry, erythema, rash Results Laboratory Results: 03/01/20 04:26 02/28/20 04:31 03/01/20 04:26 WBC 8.7 RBC 4.65 Hgb 14.3 Hct 40.5 MCV 87 MCH 30.8 MCHC 35.3 RDW 13.3 Plt Count 142 L Impressions: Tibia/Fibula X-Ray 02/26/20 23:53 IMPRESSION: No definitive evidence of osteomyelitis. No focal air collections in the soft tissues. Diffuse soft tissue edema consistent with cellulitis. Chest X-Ray 02/26/20 23:54 IMPRESSION: 1. No acute cardiothoracic abnormality. Assessment and Plan - Diagnosis (1) Cellulitis of right leg Is this a current diagnosis for this admission?: Yes Plan: Patient was placed on IV antibiotics and this seems to be effective. His white count is down and the infection does look to be improved. I will suggest a few more days of IV antibiotics prior to discharge 02/28 Improving cellulitis, continue same 03/01 cellulitis continues to improve however patient still needs IV antibiotics as it is still inflamed and infected and will benefit for another day or 2 of IV (2) Cerebral palsy Qualifiers: Cerebral palsy type: unspecified type Qualified Code(s): G80.9 - Cerebral palsy, unspecified Is this a current diagnosis for this admission?: Yes (3) Seborrheic dermatitis Is this a current diagnosis for this admission?: Yes Plan: Continue localized treatment PRN (4) Obesity Qualifiers: Body mass index: BMI 36.0-36.9 Is this a current diagnosis for this admission?: Yes - Plan Summary Summary: Obtain ultrasound of the lower extremity for further evaluation and rule out underlying DVT
[2020-03-01] MEDS: GUAIFENESIN SYRP 200 MG/10 ML UDC PO PRN (17:22)
[2020-03-01] MEDS: LINEZOLID 600 MG TABLET PO SCH (21:08)
[2020-03-01] MEDS: TAMSULOSIN HCL 0.4 MG CAP.SR.24H PO SCH (21:08)
[2020-03-02] MEDS: HEPARIN SOD (PORCINE) 5,000 UNIT/ML 1 ML VIAL SUBCUT SCH (05:18)
[2020-03-02] MEDS: DILTIAZEM HCL 120 MG CAP.SR.24H PO SCH (08:53)
[2020-03-02] MEDS: SPIRONOLACTONE 25 MG TABLET PO SCH (08:54)
[2020-03-02] MEDS: DOCUSATE SODIUM 100 MG CAPSULE PO SCH ×2 (09:51→18:57)
[2020-03-02] MEDS: LINEZOLID 600 MG TABLET PO SCH ×2 (09:57→22:02)
[2020-03-02] MEDS: LEVOFLOXACIN 500 MG TABLET PO SCH (09:57)
[2020-03-02] MEDS: FAMOTIDINE 20 MG TABLET PO SCH ×2 (09:57→21:29)
[2020-03-02] MEDS: FUROSEMIDE 20 MG TABLET PO SCH ×2 (10:07→13:38)
--- NOTE | 2020-03-02 11:44 | RADIOLOGY REPORT (SQ) ---
EXAM DESCRIPTION: VENOUS UNILATERAL LOWER IMAGES COMPLETED DATE/TIME: 03/02/2020 11:36 am REASON FOR STUDY: RLE cellulitis, swelling COMPARISON: None. TECHNIQUE: Dynamic and static mcguire scale and color images acquired of the right leg venous system. S elected spectral images acquired with additional compression and augmentation maneuvers. The contrala teral common femoral vein and saphenofemoral junction were also imaged. Images stored on PACS. LIMITATIONS: None. FINDINGS: COMMON FEMORAL: Normal phasicity, compression and augmentation. No visualized echogenic ma terial on mcguire scale. No defects on color images. FEMORAL: Normal compression and augmentation. No visualized echogenic material on mcguire scale. No defe cts on color images. POPLITEAL: Normal compression, augmentation. No visualized echogenic material on mcguire scale. No defec ts on color images. CALF VESSELS: Normal compression, augmentation. No visualized echogenic material on mcguire scale. No de fects on color images. GSV and SSV: Normal compression, augmentation. No visualized echogenic material on mcguire scale. No def ects on color images. ANY DEEP VENOUS INSUFFICIENCY: Not evaluated. ANY EVIDENCE OF POPLITEAL CYST: No. OTHER: No other significant finding. CONTRALATERAL COMMON FEMORAL VEIN AND SAPHENOFEMORAL JUNCTION: Normal phasicity, compression and augmentation. No visualized echogenic material on mcguire scale. No de fects on color images. IMPRESSION: NO EVIDENCE DVT OR SVT IN THE RIGHT LEG. TECHNICAL DOCUMENTATION: JOB ID: [id number] 2010 [employer]- All Rights Reserved Reading location - IP/workstation name: [email or web address]
--- NOTE | 2020-03-02 13:26 | PDOC PROGRESS REPORT ---
Subjective Progress Note for:: 03/02/20 Subjective:: Patient continues to improve He feels the swelling and redness is improving however patient is apparently very weak and requiring about 2-3 assist. Reason For Visit: CELLULITIS RIGHT LOWER EXTREMITY Physical Exam Vital Signs: Temp Pulse Resp BP Pulse Ox 98.0 F 123 H 19 105/78 96 03/02/20 08:46 03/02/20 08:46 03/02/20 08:46 03/02/20 08:46 03/02/20 08:46 Intake & Output 03/01/20 03/02/20 03/03/20 06:59 06:59 06:59 Intake Total 1380 900 Output Total 700 1700 Balance 680 -800 Weight 99.9 kg 92.2 kg General appearance: PRESENT: no acute distress Head exam: PRESENT: atraumatic, normocephalic Eye exam: PRESENT: conjunctiva pink, PERRLA. ABSENT: scleral icterus Mouth exam: PRESENT: moist, tongue midline Neck exam: ABSENT: carotid bruit, JVD, lymphadenopathy, thyromegaly Respiratory exam: PRESENT: clear to auscultation stacie, unlabored. ABSENT: rales, rhonchi, wheezes Cardiovascular exam: PRESENT: RRR, +S1, +S2. ABSENT: diastolic murmur, rubs, s ystolic murmur Pulses: PRESENT: normal dorsalis pedis pul GI/Abdominal exam: PRESENT: normal bowel sounds, soft. ABSENT: distended, guarding, mass, organolmegaly, rebound, tenderness Rectal exam: PRESENT: deferred Extremities exam: PRESENT: full ROM, other - Erythema and tenderness of the right leg as well as the right thigh with streaking which actually is improved. ABSENT: calf tenderness, clubbing, pedal edema Musculoskeletal exam: PRESENT: deformity - Both feet, tenderness - Right lower extremity, other Neurological exam: PRESENT: alert, awake, oriented to person, oriented to place, oriented to time, oriented to situation, CN II-XII grossly intact. ABSENT: motor sensory deficit Psychiatric exam: PRESENT: appropriate affect, normal mood. ABSENT: homicidal ideation, suicidal ideation Skin exam: PRESENT: dry, intact, warm. ABSENT: cyanosis, rash Results Laboratory Results: 03/01/20 04:26 02/28/20 04:31 Impressions: Tibia/Fibula X-Ray 02/26/20 23:53 IMPRESSION: No definitive evidence of osteomyelitis. No focal air collections in the soft tissues. Diffuse soft tissue edema consistent with cellulitis. Chest X-Ray 02/26/20 23:54 IMPRESSION: 1. No acute cardiothoracic abnormality. Venous Doppler Study 03/02/20 00:00 IMPRESSION: NO EVIDENCE DVT OR SVT IN THE RIGHT LEG. Assessment and Plan - Diagnosis (1) Cellulitis of right leg Is this a current diagnosis for this admission?: Yes Plan: Patient was placed on IV antibiotics and this seems to be effective. His white count is down and the infection does look to be improved. I will suggest a few more days of IV antibiotics prior to discharge 02/28 Improving cellulitis, continue same 03/01 cellulitis continues to improve however patient still needs IV antibiotics as it is still inflamed and infected and will benefit for another day or 2 of antibiotics 03/02 patient was switched to oral antibiotics, Levaquin and Zyvox today. He is improving however at this point given his underlying disability I think patient needs to improve further prior to discharge. Besides he is still not able to ambulate without at least 2 people just getting out of bed so physical therapy evaluation has been ordered. He tells me though that he ultimately wants to be discharged home and no plans for rehab at this time (2) Cerebral palsy Qualifiers: Cerebral palsy type: unspecified type Qualified Code(s): G80.9 - Cerebral palsy, unspecified Is this a current diagnosis for this admission?: Yes (3) Seborrheic dermatitis Is this a current diagnosis for this admission?: Yes Plan: Continue localized treatment PRN (4) Obesity Qualifiers: Body mass index: BMI 36.0-36.9 Is this a current diagnosis for this admission?: Yes - Plan Summary Summary: Sonogram reveals no evidence of any underlying etiology - Time Time Spent with patient: 15-24 minutes
--- NOTE | 2020-03-02 16:50 | Progress Note ---
Provider Note Provider Note: Patient noted to be in atrial fibrillation with a rapid ventricle response. He does have a history of chronic atrial fibrillation. He is on Cardizem which he received this morning. Patient will be given a dose of digoxin. He is not on any anticoagulant presumably because of his underlying cerebral palsy and pos sible propensity to fall Will place him on a manager cardiac cath and continue to evaluate and adjust his medications as needed
[2020-03-02] MEDS ORDERED: DIGOXIN INJ 0.5 MG/2 ML AMPULE IV ONE (17:30)
[2020-03-02] MEDS ORDERED: ENOXAPARIN SODIUM INJ 40 MG/0.4 ML DISP.SYRIN SUBCUT SCH ×2 (18:00→22:00)
[2020-03-02 18:04] LABS: ABSOLUTE EOSINOPHILS # (AUTO) 0.3 10^3/uL (0.0-0.6); ABSOLUTE LYMPHOCYTES (AUTO) 1.7 10^3/uL (0.5-4.7); ABSOLUTE NEUT (AUTO) 7.6 10^3/uL (1.7-8.2); BASOPHILS % (AUTO) 0.2 % (0-2); EOSINOPHILS % (AUTO) 2.5 % (0-6); HEMATOCRIT 40.7 % (37.9-51.0); HEMOGLOBIN 14.5 g/dL (13.5-17.0); LYMPHOCYTES % (AUTO) 15.9 % (13-45); MEAN CORPUSCULAR HEMOGLOBIN 31.3 pg (27.0-33.4); MEAN CORPUSCULAR HGB CONC 35.5 g/dL (32.0-36.0); MEAN CORPUSCULAR VOLUME 88 fl (80-97); MONOCYTES % (AUTO) 9.4 % (3-13); PLATELET COUNT 192 10^3/uL (150-450); RED BLOOD COUNT 4.63 10^6/uL (4.35-5.55); TOTAL CELLS COUNTED % (AUTO) 100 %; WHITE BLOOD COUNT 10.5 10^3/uL (4.0-10.5)
[2020-03-02 18:29] LABS: ANION GAP 7 (5-19); BLOOD UREA NITROGEN 25 mg/dL (7-20); CALCIUM 8.5 mg/dL (8.4-10.2); CARBON DIOXIDE 26 mmol/L (22-30); CHLORIDE 102 mmol/L (98-107); GLUCOSE 104 mg/dL (75-110); POTASSIUM 4.2 mmol/L (3.6-5.0)
[2020-03-02] MEDS: DILTIAZEM HCL/D5W 125 MG/125 ML RTUINJ IV PRN (18:53)
[2020-03-02] MEDS ORDERED: DILTIAZEM HCL INJ 25 MG/5 ML VIAL ONE (19:00)
[2020-03-02] MEDS: ENOXAPARIN SODIUM INJ 100 MG/1 ML DISP.SYRIN SUBCUT SCH (21:29)
[2020-03-02] MEDS: TAMSULOSIN HCL 0.4 MG CAP.SR.24H PO SCH (21:29)
[2020-03-02] MEDS: GUAIFENESIN SYRP 200 MG/10 ML UDC PO PRN (21:41)
[2020-03-03] MEDS: DILTIAZEM HCL/D5W 125 MG/125 ML RTUINJ IV PRN ×2 (07:36→22:14)
[2020-03-03] MEDS: SPIRONOLACTONE 25 MG TABLET PO SCH (07:36)
[2020-03-03] MEDS: FUROSEMIDE 20 MG TABLET PO SCH (07:37)
--- NOTE | 2020-03-03 08:15 | EKG REPORT ---
SEVERITY:- ABNORMAL ECG - ATRIAL FIBRILLATION WITH RAPID V-RATE BORDERLINE RIGHT AXIS DEVIATION MINIMAL ST DEPRESSION, INFERIOR LEADS NONSPECIFIC T ABNORMALITIES, INFERIOR LEADS : Confirmed by: Trinh Rodrigues MD 03-Mar-2020 08:14:55
[2020-03-03] MEDS: LINEZOLID 600 MG TABLET PO SCH ×2 (09:31→21:47)
[2020-03-03] MEDS: LEVOFLOXACIN 500 MG TABLET PO SCH (09:31)
[2020-03-03] MEDS: FAMOTIDINE 20 MG TABLET PO SCH ×2 (09:31→21:48)
[2020-03-03] MEDS: DOCUSATE SODIUM 100 MG CAPSULE PO SCH ×2 (09:31→17:11)
[2020-03-03] MEDS: ENOXAPARIN SODIUM INJ 100 MG/1 ML DISP.SYRIN SUBCUT SCH ×2 (09:32→21:54)
[2020-03-03] MEDS ORDERED: DILTIAZEM HCL 180 MG CAPSULE.CR PO SCH (10:00)
[2020-03-03] MEDS ORDERED: METOPROLOL TARTRATE PF/INJ 5 MG/5 ML SDV IV PRN (16:36)
--- NOTE | 2020-03-03 16:41 | PDOC PROGRESS REPORT ---
Subjective Progress Note for:: 03/03/20 Subjective:: Patient states that he feels well. Denies any palpitations at this time. Does note a history of atrial fibrillation. States that he is not on anticoagulation. Feels like his leg is improved. Reason For Visit: CELLULITIS RIGHT LOWER EXTREMITY Physical Exam Vital Signs: Temp Pulse Resp BP Pulse Ox 97.5 F 109 H 18 121/78 95 03/03/20 08:03 03/03/20 15:00 03/03/20 08:03 03/03/20 15:00 03/03/20 08:03 Intake & Output 03/02/20 03/03/20 03/04/20 06:59 06:59 06:59 Intake Total 900 570 275 Output Total 1700 300 5 Balance -800 270 270 Weight 92.2 kg 93.5 kg General appearance: PRESENT: no acute distress, cooperative Respiratory exam: PRESENT: unlabored. ABSENT: symmetrical, tachypnea, wheezes Cardiovascular exam: PRESENT: irregular rhythm, +S1, +S2, tachycardia GI/Abdominal exam: PRESENT: soft. ABSENT: rebound, rigid, tenderness Extremities exam: PRESENT: other - Erythema of right lower extremity. Neurological exam: PRESENT: alert, awake, oriented to person, oriented to place Results Laboratory Results: 03/02/20 17:44 03/02/20 17:44 03/02/20 03/02/20 17:44 17:44 WBC 10.5 RBC 4.63 Hgb 14.5 Hct 40.7 MCV 88 MCH 31.3 MCHC 35.5 RDW 13.0 Plt Count 192 Seg Neutrophils % 72.0 Sodium 135.4 L Potassium 4.2 Chloride 102 Carbon Dioxide 26 Anion Gap 7 BUN 25 H Creatinine 0.85 Est GFR ( Amer) > 60 Glucose 104 Calcium 8.5 Magnesium 2.1 02/27/20 03:26 Blood Blood Culture - Final NO GROWTH IN 5 DAYS 02/27/20 01:15 Blood Blood Culture - Final NO GROWTH IN 5 DAYS Impressions: Tibia/Fibula X-Ray 02/26/20 23:53 IMPRESSION: No definitive evidence of osteomyelitis. No focal air collections in the soft tissues. Diffuse soft tissue edema consistent with cellulitis. Chest X-Ray 02/26/20 23:54 IMPRESSION: 1. No acute cardiothoracic abnormality. Venous Doppler Study 03/02/20 00:00 IMPRESSION: NO EVIDENCE DVT OR SVT IN THE RIGHT LEG. Assessment and Plan - Diagnosis (1) Cellulitis of right leg Is this a current diagnosis for this admission?: Yes Plan: Continue with Levaquin and Zyvox. Cellulitis seems to have improved. (2) Paroxysmal atrial fibrillation with rapid ventricular response Is this a current diagnosis for this admission?: Yes Plan: Currently on diltiazem drip. Started patient on extended release diltiazem this morning with increased dose from 120 mg which is what patient takes at home to 180 mg daily. Heart rate still in the low 100s but less than 110 at this point. IV Lopressor as needed. I will add some immediate release diltiazem as well (3) Cerebral palsy Qualifiers: Cerebral palsy type: unspecified type Qualified Code(s): G80.9 - Cerebral palsy, unspecified Is this a current diagnosis for this admission?: Yes Plan: Evaluated by physical therapy. (4) Obesity Qualifiers: Body mass index: BMI 36.0-36.9 Is this a current diagnosis for this admission?: Yes - Time Time Spent with patient: Less than 15 minutes
[2020-03-03] MEDS: TAMSULOSIN HCL 0.4 MG CAP.SR.24H PO SCH (21:48)
[2020-03-03] MEDS: DILTIAZEM HCL 30 MG TABLET PO SCH (21:48)
[2020-03-03 23:02] LABS: APPEARANCE,URINE CLOUDY; BILIRUBIN,URINE NEGATIVE (NEGATIVE); COLOR,URINE YELLOW; GLUCOSE, URINE NEGATIVE (NEGATIVE); KETONES,URINE NEGATIVE (NEGATIVE); LEUKOCYTE ESTERASE,URINE NEGATIVE (NEGATIVE); NITRITE,URINE NEGATIVE (NEGATIVE); PROTEIN,URINE 30 mg/dL (NEGATIVE); URINE SPECIFIC GRAVITY 1.027; UROBILINOGEN,URINE NEGATIVE mg/dL (<2.0)
[2020-03-04] MEDS: DILTIAZEM HCL 30 MG TABLET PO SCH (05:00)
[2020-03-04 05:46] LABS: ANION GAP 9 (5-19); BLOOD UREA NITROGEN 30 mg/dL (7-20); CALCIUM 8.1 mg/dL (8.4-10.2); CARBON DIOXIDE 24 mmol/L (22-30); CHLORIDE 103 mmol/L (98-107); GLUCOSE 101 mg/dL (75-110); POTASSIUM 3.9 mmol/L (3.6-5.0)
[2020-03-04] MEDS: LINEZOLID 600 MG TABLET PO SCH (09:50)
[2020-03-04] MEDS: FUROSEMIDE 20 MG TABLET PO SCH (09:50)
[2020-03-04] MEDS: LEVOFLOXACIN 500 MG TABLET PO SCH (09:51)
[2020-03-04] MEDS: ENOXAPARIN SODIUM INJ 100 MG/1 ML DISP.SYRIN SUBCUT SCH (09:52)
[2020-03-04] MEDS: DOCUSATE SODIUM 100 MG CAPSULE PO SCH ×2 (09:52→18:05)
[2020-03-04] MEDS: DILTIAZEM HCL 90 MG TABLET PO SCH ×3 (09:52→20:33)
[2020-03-04] MEDS: SPIRONOLACTONE 25 MG TABLET PO SCH (09:52)
[2020-03-04] MEDS: FAMOTIDINE 20 MG TABLET PO SCH ×2 (09:53→21:07)
--- NOTE | 2020-03-04 11:29 | PDOC PROGRESS REPORT ---
Subjective Progress Note for:: 03/04/20 Subjective:: Patient feels well today. States that he walks his cane in the house however informed by nursing staff the patient has been very unstable on his feet requiring significant assistance. I will have physical therapy work with patient today. Reason For Visit: CELLULITIS RIGHT LOWER EXTREMITY Physical Exam Vital Signs: Temp Pulse Resp BP Pulse Ox 97.5 F 80 18 104/64 96 03/04/20 07:42 03/04/20 07:42 03/04/20 07:42 03/04/20 07:42 03/04/20 07:42 Intake & Output 03/03/20 03/04/20 03/05/20 06:59 06:59 06:59 Intake Total 570 676 Output Total 300 1205 Balance 270 -529 Weight 93.5 kg 94.8 kg General appearance: PRESENT: no acute distress, cooperative Neck exam: ABSENT: JVD Respiratory exam: PRESENT: clear to auscultation stacie, unlabored. ABSENT: tachyp sana, wheezes Cardiovascular exam: PRESENT: irregular rhythm, +S1, +S2. ABSENT: tachycardia GI/Abdominal exam: PRESENT: normal bowel sounds, soft. ABSENT: rebound, rigid, tenderness Neurological exam: PRESENT: alert, awake, oriented to person, oriented to place, oriented to time, oriented to situation Results Laboratory Results: 03/02/20 17:44 03/04/20 04:45 03/03/20 03/04/20 21:30 04:45 Sodium 136.0 L Potassium 3.9 Chloride 103 Carbon Dioxide 24 Anion Gap 9 BUN 30 H Creatinine 0.86 Est GFR ( Amer) > 60 Glucose 101 Calcium 8.1 L Magnesium 2.0 Urine Color YELLOW Urine Appearance CLOUDY Urine pH 5.0 Ur Specific [place] 1.027 Urine Protein 30 H Urine Glucose (UA) NEGATIVE Urine Ketones NEGATIVE Urine Blood MODERATE H Urine Nitrite NEGATIVE Ur Leukocyte Esterase NEGATIVE Urine WBC (Auto) 2 Urine RBC (Auto) 2 Impressions: Tibia/Fibula X-Ray 02/26/20 23:53 IMPRESSION: No definitive evidence of osteomyelitis. No focal air collections in the soft tissues. Diffuse soft tissue edema consistent with cellulitis. Chest X-Ray 02/26/20 23:54 IMPRESSION: 1. No acute cardiothoracic abnormality. Venous Doppler Study 03/02/20 00:00 IMPRESSION: NO EVIDENCE DVT OR SVT IN THE RIGHT LEG. Assessment and Plan - Diagnosis (1) Cellulitis of right leg Is this a current diagnosis for this admission?: Yes Plan: Discontinue Levaquin and linezolid. Avoid Bactrim given hyperkalemia and spironolactone. Will place patient on doxycycline to continue the rest of his therapy. Cellulitis improving. (2) Paroxysmal atrial fibrillation with rapid ventricular response Is this a current diagnosis for this admission?: Yes Plan: Since the patient takes diltiazem 120 mg CD at home. Discussed with patient today about anticoagulation and he states that he was on Xarelto before but was discontinued by his primary care provider. He does remember why was discontinued or if he was placed on this medication due to his atrial fibrillation or not a condition. Currently my calculated chads vas score is 1. I will place patient on aspirin and defer to his primary care provider for further management. Heart rate improved today with patient on IR diltiazem 90 mg. Drip discontinued. We will ambulate patient and see how heart rate performs. (3) Cerebral palsy Qualifiers: Cerebral palsy type: unspecified type Qualified Code(s): G80.9 - Cerebral palsy, unspecified Is this a current diagnosis for this admission?: Yes Plan: Evaluated by physical therapy. Was quite unsteady on his feet. Will have physical therapy reevaluate. (4) Obesity Qualifiers: Body mass index: BMI 36.0-36.9 Is this a current diagnosis for this admission?: Yes - Time Time Spent with patient: 15-24 minutes
[2020-03-04] MEDS: DOXYCYCLINE HYCLATE 100 MG TABLET PO SCH ×2 (14:50→21:07)
[2020-03-04] MEDS ORDERED: SULFAMETHOXAZOLE/TRIMETHOPRIM 800-160 MG TABLET PO SCH (18:00)
[2020-03-04] MEDS: TAMSULOSIN HCL 0.4 MG CAP.SR.24H PO SCH (21:07)
[2020-03-04 23:05] LABS: APPEARANCE,URINE SLIGHTLY-CLOUDY; BILIRUBIN,URINE NEGATIVE (NEGATIVE); COLOR,URINE YELLOW; GLUCOSE, URINE NEGATIVE (NEGATIVE); KETONES,URINE NEGATIVE (NEGATIVE); LEUKOCYTE ESTERASE,URINE NEGATIVE (NEGATIVE); NITRITE,URINE NEGATIVE (NEGATIVE); PROTEIN,URINE 30 mg/dL (NEGATIVE); URINE SPECIFIC GRAVITY 1.023; UROBILINOGEN,URINE NEGATIVE mg/dL (<2.0)
[2020-03-05] MEDS: DILTIAZEM HCL 90 MG TABLET PO SCH (02:10)
[2020-03-05] MEDS: FAMOTIDINE 20 MG TABLET PO SCH (09:15)
[2020-03-05] MEDS: FUROSEMIDE 20 MG TABLET PO SCH (09:15)
[2020-03-05] MEDS: SPIRONOLACTONE 25 MG TABLET PO SCH (09:16)
[2020-03-05] MEDS: DOCUSATE SODIUM 100 MG CAPSULE PO SCH (09:16)
[2020-03-05] MEDS: DOXYCYCLINE HYCLATE 100 MG TABLET PO SCH (09:16)
--- NOTE | 2020-03-05 09:50 | PDOC DISCHARGE SUMMARY ---
Impression - Admit/DC Date/PCP Admission Date/Primary Care Provider: 02/27/20 02:40 MARTÍNEZ CRAFT MD Discharge Date: 03/05/20 - Discharge Diagnosis (1) Cellulitis of right leg Is this a current diagnosis for this admission?: Yes (2) Paroxysmal atrial fibrillation with rapid ventricular response Is this a current diagnosis for this admission?: Yes (3) Cerebral palsy Is this a current diagnosis for this admission?: Yes (4) Obesity Is this a current diagnosis for this admission?: Yes - Additional Information Resuscitation Status: Full Code Discharge Diet: Cardiac Referrals: MARTÍNEZ CRAFT MD [Primary Care Provider] - Follow up as needed Prescriptions: Diltiazem HCl [Cardizem Cd 240 mg Capsule.cr] 240 mg PO DAILY #30 capsule.cr Aspirin [Ecotrin 81 mg EC Tablet] 81 mg PO DAILY #30 tabec Doxycycline Hyclate [Vibramycin 100 mg Tablet] 100 mg PO Q12 3 Days #6 tablet Home Medications: Tamsulosin HCl [Flomax 0.4 mg Cap.sr] 0.4 mg PO QHS 12/14/16 Furosemide [Lasix 20 mg Tablet] 20 mg PO QAM 02/27/20 Spironolactone [Aldactone 25 mg Tablet] 25 mg PO QAM 02/27/20 Aspirin [Ecotrin 81 mg EC Tablet] 81 mg PO DAILY #30 tabec 03/05/20 Diltiazem HCl [Cardizem Cd 240 mg Capsule.cr] 240 mg PO DAILY #30 capsule.cr 03/05/20 Doxycycline Hyclate [Vibramycin 100 mg Tablet] 100 mg PO Q12 3 Days #6 tablet 03/05/20 History of Present Illiness History of Present Illness: SUSANNAH SLOAN is a 59 year old male who presents the emergency room with a 3-day history of painful swelling in the right lower leg. He admits a gradual onset and worsening of the constantly present redness and swelling with ever increasing pain, becoming severe today. The pain has been accompanied by redness and associated with increased warmth of the skin as well as the previously mentioned swelling. The pain is a throbbing aching sensation, without radiation. He denies other associated or accompanying signs and symptoms. He admits numerous prior similar episodes related to cellulitis in his lower extremities. 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 He has not identified any additional aggravating or ameliorating factors for his painful swelling of the right lower leg. In the emergency room he was found to have an elevated white count 19,900 with a lactic acid of 2.2. He was given IV antibiotics initially in the ER and was subsequently admitted for further evaluation and treatment. Hospital Course Hospital Course: Patient was admitted for management of cellulitis. Noted to have significant erythema in his right lower leg. Lab work revealed significant leukocytosis. He was started on IV antibiotics. Leukocytosis resolved. Blood cultures were negative at completion. Patient was later transitioned to oral antibiotics. Patient subsequently went into paroxysmal atrial fibrillation with rapid ventricular response requiring placement on a diltiazem drip. Patient was started on oral diltiazem as well and was gradually weaned off the diltiazem drip. Patient has been off the diltiazem drip for 24 hours now and his heart rate has been maintaining below 100. Patient's diltiazem dose has been increased from 120 to 240 mg CD. Patient walked with physical therapy and was unsteady due to his cerebral palsy however states that he has his own way of managing his cerebral palsy and that his ambulation has been changed and would like to go home. As patient insists on going home and feels that he is at baseline in terms of ambulation, his wishes will be respected and he will be discharged home with home PT and OT. Patient is to continue on oral antibiotic doxycycline for 3 more days to complete a 10-day course of treatment. Physical Exam Vital Signs: Temp Pulse Resp BP Pulse Ox 97.9 F 90 20 125/84 94 03/05/20 03:19 03/05/20 03:19 03/05/20 03:19 03/05/20 03:19 03/05/20 03:19 Intake & Output 03/04/20 03/05/20 03/06/20 06:59 06:59 06:59 Intake Total 676 697 Output Total 6657 164 Balance -529 -253 Weight 94.8 kg 93.8 kg General appearance: PRESENT: no acute distress, cooperative Respiratory exam: PRESENT: unlabored Cardiovascular exam: PRESENT: irregular rhythm. ABSENT: tachycardia GI/Abdominal exam: PRESENT: soft Extremities exam: PRESENT: other - Erythema in the right leg has improved Results Laboratory Results: WBC 10.5 10^3/uL (4.0-10.5) 03/02/20 17:44 RBC 4.63 10^6/uL (4.35-5.55) 03/02/20 17:44 Hgb 14.5 g/dL (13.5-17.0) 03/02/20 17:44 Hct 40.7 % (37.9-51.0) 03/02/20 17:44 MCV 88 fl (80-97) 03/02/20 17:44 MCH 31.3 pg (27.0-33.4) 03/02/20 17:44 MCHC 35.5 g/dL (32.0-36.0) 03/02/20 17:44 RDW 13.0 % (11.5-14.0) 03/02/20 17:44 Plt Count 192 10^3/uL (150-450) 03/02/20 17:44 Lymph % (Auto) 15.9 % (13-45) 03/02/20 17:44 [place] % (Auto) 9.4 % (3-13) 03/02/20 17:44 Eos % (Auto) 2.5 % (0-6) 03/02/20 17:44 Baso % (Auto) 0.2 % (0-2) 03/02/20 17:44 Absolute Neuts (auto) 7.6 10^3/uL (1.7-8.2) 03/02/20 17:44 Absolute Lymphs (auto) 1.7 10^3/uL (0.5-4.7) 03/02/20 17:44 Absolute Monos (auto) 1.0 10^3/uL (0.1-1.4) 03/02/20 17:44 Absolute Eos (auto) 0.3 10^3/uL (0.0-0.6) 03/02/20 17:44 Absolute Basos (auto) 0.0 10^3/uL (0.0-0.2) 03/02/20 17:44 Total Counted 100 02/27/20 01:15 Seg Neutrophils % 72.0 % (42-78) 03/02/20 17:44 Seg Neuts % (Manual) 87 % (42-78) H 02/27/20 01:15 Band Neutrophils % 5 % (3-5) 02/27/20 01:15 Lymphocytes % (Manual) 3 % (13-45) L 02/27/20 01:15 Atypical Lymphs % 1 % (0) 02/27/20 01:15 Monocytes % (Manual) 4 % (3-13) 02/27/20 01:15 Eosinophils % (Manual) 0 % (0-6) 02/27/20 01:15 Basophils % (Manual) 0 % (0-2) 02/27/20 01:15 Abs Neuts (Manual) 18.3 10^3/uL (1.7-8.2) H 02/27/20 01:15 Abs Lymphs (Manual) 0.8 10^3/uL (0.5-4.7) 02/27/20 01:15 Abs Monocytes (Manual) 0.8 10^3/uL (0.1-1.4) 02/27/20 01:15 Absolute Eos (Manual) 0.0 10^3/uL (0.0-0.6) 02/27/20 01:15 Abs Basophils (Manual) 0.0 10^3/uL (0.0-0.2) 02/27/20 01:15 Platelet Comment DECREASED 02/27/20 01:15 Tear Drop Cells SLIGHT 02/27/20 01:15 Sodium 136.0 mmol/L (137-145) L 03/04/20 04:45 Potassium 3.9 mmol/L (3.6-5.0) 03/04/20 04:45 Chloride 103 mmol/L (98-107) 03/04/20 04:45 Carbon Dioxide 24 mmol/L (22-30) 03/04/20 04:45 Anion Gap 9 (5-19) 03/04/20 04:45 BUN 30 mg/dL (7-20) H 03/04/20 04:45 Creatinine 0.86 mg/dL (0.52-1.25) 03/04/20 04:45 Est GFR ( Amer) > 60 (>60) 03/04/20 04:45 Est GFR (MDRD) Non-Af > 60 (>60) 03/04/20 04:45 Glucose 101 mg/dL (75-110) 03/04/20 04:45 POC Glucose 115 mg/dL (70-110) H 02/27/20 00:56 Lactic Acid 2.2 mmol/L (0.7-2.1) H 02/27/20 01:15 Calcium 8.1 mg/dL (8.4-10.2) L 03/04/20 04:45 Magnesium 2.0 mg/dL (1.6-2.3) 03/04/20 04:45 Total Bilirubin 1.4 mg/dL (0.2-1.3) H 02/27/20 01:15 Direct Bilirubin 0.0 mg/dL (0.0-0.4) 02/27/20 01:15 Neonat Total Bilirubin Not Reportable 02/27/20 01:15 Neonat Direct Bilirubin Not Reportable 02/27/20 01:15 Neonat Indirect Bili Not Reportable 02/27/20 01:15 AST 53 U/L (17-59) 02/27/20 01:15 ALT 34 U/L (<50) 02/27/20 01:15 Alkaline Phosphatase 75 U/L (38-126) 02/27/20 01:15 Total Protein 7.1 g/dL (6.3-8.2) 02/27/20 01:15 Albumin 4.2 g/dL (3.5-5.0) 02/27/20 01:15 Urine Color YELLOW 03/04/20 22:50 Urine Appearance SLIGHTLY-CLOUDY 03/04/20 22:50 Urine pH 5.0 (5.0-9.0) 03/04/20 22:50 Ur Specific [place] 1.023 03/04/20 22:50 Urine Protein 30 mg/dL (NEGATIVE) H 03/04/20 22:50 Urine Glucose (UA) NEGATIVE mg/dL (NEGATIVE) 03/04/20 22:50 Urine Ketones NEGATIVE mg/dL (NEGATIVE) 03/04/20 22:50 Urine Blood MODERATE (NEGATIVE) H 03/04/20 22:50 Urine Nitrite NEGATIVE (NEGATIVE) 03/04/20 22:50 Urine Bilirubin NEGATIVE (NEGATIVE) 03/04/20 22:50 Urine Urobilinogen NEGATIVE mg/dL (<2.0) 03/04/20 22:50 Ur Leukocyte Esterase NEGATIVE (NEGATIVE) 03/04/20 22:50 Urine WBC (Auto) 2 /HPF 03/04/20 22:50 Urine RBC (Auto) 1 /HPF 03/04/20 22:50 Squamous Epi Cells Auto <1 /HPF 03/04/20 22:50 Urine Mucus (Auto) FEW /LPF 03/04/20 22:50 Urine Ascorbic Acid NEGATIVE (NEGATIVE) 03/04/20 22:50 Impressions: Tibia/Fibula X-Ray 02/26/20 23:53 IMPRESSION: No definitive evidence of osteomyelitis. No focal air collections in the soft tissues. Diffuse soft tissue edema consistent with cellulitis. Chest X-Ray 02/26/20 23:54 IMPRESSION: 1. No acute cardiothoracic abnormality. Venous Doppler Study 03/02/20 00:00 IMPRESSION: NO EVIDENCE DVT OR SVT IN THE RIGHT LEG. Plan Time Spent: Less than 30 Minutes Stroke Is this a Stroke Patient?: No Acute Heart Failure - Is this a Heart Failure Patient?: No
[2020-03-05] MEDS ORDERED: DILTIAZEM HCL 240 MG CAPSULE.CR PO SCH (10:00)
[2020-03-05] MEDS ORDERED: ASPIRIN 81 MG TABLET, ENT COATED PO SCH (10:00)
[2020-03-05 10:39] VITALS: BP 113/83
== END 2020-03-05 12:12 | disposition home or self-care (01) | DRG 603 ==
LOC: ER 22:41 → EH 02-27 02:40 → 4N 02-27 07:24 → 3W 03-02 18:47
PROVIDERS: ADMIT Emergency Medicine; ATTEND Internal Medicine
DX: L03.116 Cellulitis of left lower limb (principal); L03.115 Cellulitis of right lower limb; G80.9 Cerebral palsy, unspecified; I48.0 Paroxysmal atrial fibrillation; I10 Essential (primary) hypertension; E78.5 Hyperlipidemia, unspecified; E66.9 Obesity, unspecified; Z68.36 Body mass index [BMI] 36.0-36.9, adult; Z82.49 Family history of ischemic heart disease and other diseases of the circulatory system; Z83.3 Family history of diabetes mellitus; Z79.899 Other long term (current) drug therapy; Z88.1 Allergy status to other antibiotic agents; Z79.01 Long term (current) use of anticoagulants
CPT/HCPCS: 36415; 71046; 80048; 80053; 81001; 82962; 83605; 83735; 85025; 85027; 87040; 93005; 93010; 93306; 93971; J1160; J1644; J1650; J1956; J2020; J2270; J2405; J2543; J3490; J7030; S0028